=== PATIENT | male | born 1955 | race Caucasian/White ===

== ENCOUNTER 2016-04-18 13:24 | Emergency (ER) | payer MEDICAID ==
[2016-04-18 13:31] VITALS: TEMP 97.2
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
[2016-04-18] MEDS ORDERED: HYDROCOD/APAP 5/325 PREPACK#6 BTL TAKEHOME ONE (14:44)
[2016-04-18 15:05] VITALS: BP 146/94; PULSE 72; RESP 18; O2SAT 96
--- NOTE | 2016-04-18 16:09 | DX ---
Right rib series, 6 views - April 18, 2016 History: Fall with right-sided rib pain. Comparison: Portable chest of December 02, 2015, PA and lateral chest from May 06, 2014. Findings: There are acute nondisplaced fractures of the anterior right 5th and 6th ribs. Contour irr egularity of the lateral right 7th rib could be related to acute or old fracture. There is no pneumot horax. Mild cardiomegaly is present. There is scattered atelectasis. Moderate degenerative change is present in the right glenohumeral joint. Impression: Acute nondisplaced anterior right 5th and 6th rib fractures with an age indeterminate no ndisplaced lateral right 7th rib fracture.
== END 2016-04-18 15:05 | disposition home or self-care (01) ==
DX: S20.219A Contusion of unspecified front wall of thorax, initial encounter (principal); Z85.46 Personal history of malignant neoplasm of prostate; W00.0XXA Fall on same level due to ice and snow, initial encounter; Y93.89 Activity, other specified

== ENCOUNTER 2017-01-12 15:20 | Inpatient (IN) | payer MEDICAID ==
[2017-01-12] MEDS ORDERED: NS 1,000 ML IV ONE ×2 (15:52→17:42)
[2017-01-12] MEDS ORDERED: LORazepam 2 MG/ML INJ IVP ONE (15:52)
[2017-01-12] MEDS ORDERED: ONDANSETRON 4 MG/2 ML VIAL IVP ONE ×2 (15:52→18:47)
[2017-01-12] MEDS ORDERED: HYDROmorphONE/DILAUDID 1 MG/ML INJ IVP ONE (15:54)
--- NOTE | 2017-01-12 15:55 | CPEKG ---
Heart Rate: 71 RR Interval: 845 P-R Interval: 180 QRSD Interval: 112 QT Interval: 400 QTC Interval: 435 P [place]: 16 QRS [place]: 36 T Wave [place]: 37 EKG Severity - ABNORMAL ECG - EKG Impression: SINUS RHYTHM EKG Impression: INCOMPLETE RIGHT BUNDLE BRANCH BLOCK Electronically Signed By: Jean Marie Cole 12-Jan-2017 16:15:04
[2017-01-12 15:58] LABS: HEMATOCRIT 44.8 % (40.0-51.0); HEMOGLOBIN 16.3 g/dL (13.7-17.5); MEAN CELL HEMOGLOBIN 33.7 pg (27.9-34.1); MEAN CELL HEMOGLOBIN CONCENTR. 36.4 g/dL (32.4-36.7); MEAN CELL VOLUME 92.6 fL (81.5-99.8); MEAN PLATELET VOLUME 10.1 fL (8.7-11.7); PLATELET COUNT 239 10^3/uL (150-400); RED BLOOD CELL COUNT 4.84 10^6/uL (4.40-6.38); RED CELL DISTRIBUTION WIDTH 13.1 % (11.5-15.2)
[2017-01-12 15:59] LABS: % IMMATURE GRANULYOCYTES 0.3 % (0.0-1.1); ABSOLUTE IMMATURE GRANULOCYTES 0.02 10^3/uL (0.00-0.10); ADD DIFF? NO; ADD MORPH? NO; ADD SCAN? NO; ATYPICAL LYMPHOCYTE FLAG 10 (0-99); FRAGMENT RBC FLAG 0 (0-99); LEFT SHIFT FLG 0 (0-99); LIPEMIA HEMOLYSIS FLAG 90 (0-99); PLATELET CLUMPS FLAG 0 (0-99)
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
[2017-01-12 16:10] LABS: ALANINE AMINOTRANSFERASE 30 IU/L (21-72); ALBUMIN 4.2 g/dL (3.5-5.0); ALKALINE PHOSPHATASE 74 IU/L (38-126); ANION GAP 11 mEq/L (8-16); ASPARTATE AMINOTRANSFERASE 19 IU/L (17-59); BILIRUBIN,TOTAL 1.3 mg/dL (0.1-1.4); BILIRUBIN-CONJUGATED 0.4 mg/dL (0.0-0.5); BILIRUBIN-UNCONJUGATED 0.9 mg/dL (0.0-1.1); CALCIUM 9.2 mg/dL (8.5-10.4); CARBON DIOXIDE 22 mEq/l (22-31); CHLORIDE 104 mEq/L (97-110); CREATININE 0.9 mg/dL (0.7-1.3); GLOMERULAR FILTRATION RATE > 60; GLUCOSE 93 mg/dL (70-100); POTASSIUM 4.2 mEq/L (3.5-5.2); SODIUM 137 mEq/L (134-144)
[2017-01-12 16:12] LABS: INR 1.09 (0.83-1.16)
[2017-01-12 16:13] LABS: APTT 28.1 SEC (23.0-38.0)
[2017-01-12 16:20] LABS: TROPONIN I < 0.012 ng/mL (0.000-0.034)
[2017-01-12] MEDS ORDERED: IOPAMIDOL (ISOVUE-300) 100 ML BTL ONE (16:42)
[2017-01-12] MEDS ORDERED: ONDANSETRON 4 MG/2 ML VIAL IVP PRN (19:30)
[2017-01-12] MEDS ORDERED: ONDANSETRON DISINTEGRATING 4 MG TAB PO PRN (19:30)
[2017-01-12] MEDS ORDERED: MECLIZINE HCL 12.5 MG TAB PO PRN (22:00)
[2017-01-12] MEDS ORDERED: BISACODYL 10 MG SUPP PR PRN (22:07)
[2017-01-12] MEDS ORDERED: LACTULOSE 20 GM/30 ML UDCUP PO PRN (22:07)
[2017-01-12] MEDS ORDERED: MAGNESIUM HYDROXIDE 30 ML UDCUP PO PRN (22:07)
[2017-01-12] MEDS ORDERED: POLYETHYLENE GLYCOL 3350 17 GM PKT PO PRN (22:07)
[2017-01-12] MEDS: HYDROCODONE/APAP 5/325 TAB PO PRN (22:20)
[2017-01-12 22:44] LABS: COLOR YELLOW; LEUKOCYTE ESTERASE,URINE NEGATIVE (NEGATIVE); NITRITE,URINE NEGATIVE (NEGATIVE)
--- NOTE | 2017-01-12 22:49 | GHP ---
[f rep st] HISTORY AND PHYSICAL DATE OF ADMISSION: 01/12/2017 CHIEF COMPLAINT: Dizziness, abdominal pain. PRIMARY ONCOLOGIST: Kristen Mata MD. HISTORY OF PRESENT ILLNESS: A 61-year-old male with metastatic prostate cancer , history of concussion, chronic tinnitus, who was undergoing a nuclear bone scan and developed sudden onset of dizziness and abdominal pain. It was difficult to obtain history from patient as he is very tangential during the interview. He thinks he is dizzy probably because of decreased p.o. intake for the last 2 weeks. Any kind of food or drink causes bloating, increased belching. He feels very full quickly. He has had some chills, but no fevers or sweats. Some nausea. No emesis or diarrhea. No recent antibiotics. Has dysuria for 2 weeks. He was seen at [facility] on Monday and received Lupron and Zometa. After that, he developed 2 days of diarrhea and abdominal cramping. Prior to that, he was started on prednisone, but this caused stomach cramps, so he stopped. He takes Advil regularly for his chronic back pain. Denies melena or hematochezia. He has a history of a concussion a year ago. He said he had dizziness chronically thereafter and was taking meclizine. That symptom has improved over the last 4 months. Today, he received tracer injection for bone scan and suddenly dizziness started. STAT team called and sent to ER for further evaluation. REVIEW OF SYSTEMS: I completed a 10-point review of systems, negative except as noted in the HPI. PAST MEDICAL HISTORY: 1. Metastatic prostate cancer. 2. Degenerative disk disease L4-L5. 3. Hearing loss. 4. Tinnitus. 5. Chronic dizziness after concussion a year ago. 6. Hiatal hernia. PAST SURGICAL HISTORY: Left elbow. SOCIAL HISTORY: Lives in [place] alone. Occasional alcohol. No tobacco or illicits. FAMILY HISTORY: Brother of melanoma. Father with melanoma. HOME MEDICATIONS: Tylenol, Flexeril, ranitidine, Vicodin, Advil 2-3 tabs daily. ALLERGIES: No known drug allergies. PHYSICAL EXAM: VITAL SIGNS: Blood pressure 145/88, heart rate 60s, respirations 18, 95% on room air. Temperature 36.4. GENERAL: Sitting up in a chair. No acute distress. HEENT: PERRLA. EOMI. Oropharynx clear. CV: Regular rate and rhythm. No murmurs, gallops, rubs. LUNGS: Clear to auscultation bilaterally. ABDOMEN: Soft, nontender, nondistended. Positive bowel sounds. : No suprapubic tenderness or CVA tenderness. MUSCULOSKELETAL : 5/5 upper lower extremity strength. NEURO: 2 through 12 intact. PSYCH: Alert and oriented x3. Very difficult to keep on point, tangential on question. LABORATORY DATA: Coags within normal. Sodium 137, potassium 4.2, chloride 104 , anion gap 11, creatinine 0.9. LFTs within normal. Troponin less than 0.012. Lipase 59. WBC 7.4, hemoglobin 16, hematocrit 44, platelets 259. EKG personally reviewed by me. Incomplete bundle branch block. This is seen on prior EKG. Head CT personally reviewed. Normal brain. No acute hemorrhage or infarct. Abdominal CT: No acute intraabdominal process. No appendicitis or obstruction. Retroperitoneal/left periaortic lymphadenopathy has decreased. Bilateral external iliac lymphadenopathy has increased. Questionable sclerotic lesion of a left 8th rib. Sigmoid diverticulosis. ASSESSMENT AND PLAN: 1. Dizziness: Differential includes cerebrovascular accident versus dehydration. CT head was negative. Blood pressure is stable here. We will check orthostatics. Hydrate overnight. Troponin, EKG negative for ischemia. P.r.n. meclizine. 2. Abdominal pain: maybe due to tracer medication? No evidence of infection or obstruction on CT. May be due to underlying constipation. Start bowel regimen. 3. Metastatic prostate cancer: Management per Oncology. 4. Chronic back pain: I advised patient to be cautious with Advil as that could cause gastrointestinal bleeding which he had in the past with meloxicam. He can use Vicodin or Tylenol. DIET: Regular. DEEP VENOUS THROMBOSIS PROPHYLAXIS: Lovenox. DISPOSITION: Patient warrants observation admission given acute dizziness, abdominal pain, IV hydration and p.r.n. antiemetics. /[id number]/MODL MTDD
[2017-01-13] MEDS: HYDROCODONE/APAP 5/325 TAB PO PRN (02:22)
[2017-01-13 05:21] LABS: ANION GAP 5 mEq/L (8-16); CALCIUM 8.1 mg/dL (8.5-10.4); CARBON DIOXIDE 24 mEq/l (22-31); CHLORIDE 107 mEq/L (97-110); CREATININE 0.8 mg/dL (0.7-1.3); GLOMERULAR FILTRATION RATE > 60; GLUCOSE 90 mg/dL (70-100); POTASSIUM 4.1 mEq/L (3.5-5.2); SODIUM 136 mEq/L (134-144)
[2017-01-13] MEDS ORDERED: Herbals/Supplements -Info Only PO SCH (09:00)
[2017-01-13] MEDS ORDERED: FAMOTIDINE 20 MG TAB PO PRN (09:00)
[2017-01-13] MEDS: ACETAMINOPHEN 325 MG TAB PO PRN ×2 (09:34→19:43)
[2017-01-13] MEDS: SENNOSIDES/DOCUSATE SODIUM TAB PO SCH ×2 (09:34→21:29)
[2017-01-13] MEDS: ENOXAPARIN 40 MG/0.4 ML SYR SC SCH (09:39)
--- NOTE | 2017-01-13 15:22 | HOSPPROG ---
Hospitalist Progress Note Assessment/Plan: DIAGNOSES: -gradually progressive left lower quadrant abdominal pain over 6-8 weeks now with several episodes of severe spasm in the lower abdomen, with some intermittent constipation and/or loose stools -prostate cancer on Lupron and Zometa; it is possible that the zometa and Lupron have somewhat aggravated his GI symptoms As I reviewed the case in detail with the patient he clearly has had progressive symptoms over 6 weeks. In addition there is a very focal spot with tenderness pain and a trigger point for nausea in the left lower quadrant. I am easily able to trigger some pain and spasm of the got along with nausea by palpating this area though out there is no peritoneal sign and there is no palpable mass. There are no corresponding findings to that area on his CT scan abdomen is I have reviewed the images today. Additionally he tells me that he has been able to eat very well food is fair bit of weight almost all the food he eats his either liquid or soft such as yogurt. This has been going on again for several weeks. Also he mentions that probably a couple weeks before all these digestive symptoms started, he was taking some nonsteroidal anti- inflammatory medicine for back pain. At 1 point during this he had 2 days of hematochezia. He visited his physician who recommended that he stop the in nonsteroidal anti-inflammatory but there was no diagnostic evaluation done at that time. Thus I am concerned about the possibility that he could have a gastric or colonic ulcer, or even possibly a tumor or other inflammatory lesion causing all of his symptoms as described. His dizziness I think is a combination of chronic dizziness from closed head injury, dehydration, and dizziness side effects from his [place] and Lupron, and I am not concerned about that symptom right now. It is not debilitating and I do not think he has had a stroke. There is no vertigo involved or allergic symptoms. PLANS: -I have spoken with Dr. Amber Shoemaker and recommended we consider upper and lower endoscopy and Dr. Shoemaker is scheduling him for EGD and colonoscopy tomorrow. I have put the appropriate -diet orders and colitis border in -to his own symptoms inability to eat and difficulty controlling pain, the patient will require ongoing management here in the hospital with ongoing diagnostic studies, therefore will need to change to inpatient SUBJECTIVE: The patient's abdominal pain continues. As I talked to him that he has is a constant left lower quadrant ache that is very localized and small in dimension , and always palpable him with his fingers. Any time he palpates this area he triggers nausea, triggers what feels like intestinal spasm and quite a bit of pain. He also intermittently has spontaneous episodes of severe pain across the lower abdomen that seemed to emanate from this area in the left lower quadrant. OBJECTIVE Vitals reviewed: Stable without fever Exam: alert oriented skin warm dry color ok resps not labored lungs clear BSs heart regular abd soft nondistended, bowel sounds present, no palpable abnormality; there is a focal area of tenderness in the left lower quadrant that triggers nausea upon my palpation as well as a spasm of crampy colicky type pain across his lower abdomen limbs warm, no edema iv site ok Objective: Vital Signs Temp Pulse Resp BP Pulse Ox 36.8 C 62 14 127/73 H 95 01/13/17 11:43 01/13/17 11:43 01/13/17 11:43 01/13/17 11:43 01/13/17 11:43 Laboratory Results 01/13/17 04:24 01/12/17 01/13/17 01/14/17 06:59 06:59 06:59 Intake Total 3120 Output Total 1375 650 Balance 1745 -650 PT 14.0 SEC (12.0-15.0) 01/12/17 15:42 INR 1.09 (0.83-1.16) 01/12/17 15:42 - Time Spent With Patient Time Spent with Patient: greater than 35 minutes Time Spent with Patient: Greater than 35 minutes spent on this patients care, greater than 50% of time spent counseling, educating, and coordinating care regarding the above mentioned plan. ICD10 Worksheet Patient Problems: Problems Problem Status Onset Near syncope Acute Prostate cancer Acute 08/21/13 Ataxia Acute Febrile neutropenia Acute 03/30/14 Sinusitis Acute
[2017-01-13] MEDS ORDERED: PEG 3350/NA SULF,BICARB,CL/KCL (GAVILYTE-G) 4000 ML BTL PO ONE ×2 (15:29→21:15)
--- NOTE | 2017-01-13 17:22 | ASMTCMCOM ---
CM Note CM Note Notes: Pt with hx of metastatic prostate ca admitted for dizziness. Testing in progress. Pt's needs are TBD. Date Signed: 01/13/2017 05:21 PM Electronically Signed By:Yazmin Chapin LCSW
[2017-01-13] MEDS: CYCLOBENZAPRINE 10 MG TAB PO PRN (19:43)
[2017-01-14] MEDS: HYDROCODONE/APAP 5/325 TAB PO PRN ×3 (01:14→22:42)
--- NOTE | 2017-01-14 05:09 | PDMN ---
Medical Necessity Medical necessity: Pt meets INPT criteria per MD as of 01/13/17. LOS >2 MN for ongoing eval/mgmt of progressive abd pain requiring further diagnostic studies; hx prostate cancer on rx per MD progress note.
[2017-01-14] MEDS: ENOXAPARIN 40 MG/0.4 ML SYR SC SCH (07:59)
[2017-01-14] MEDS: SENNOSIDES/DOCUSATE SODIUM TAB PO SCH ×2 (07:59→19:48)
[2017-01-14] MEDS: ACETAMINOPHEN 325 MG TAB PO PRN ×2 (09:55→17:59)
[2017-01-14] MEDS ORDERED: PROPOFOL/EMULSION 500 MG/50 ML BOTTLE IV ONE (11:22)
[2017-01-14] MEDS ORDERED: fentaNYL 100 MCG/2 ML INJ IVP PRN (12:15)
[2017-01-14] MEDS ORDERED: NALOXONE HCL 0.4 MG/ML INJ IVP PRN (12:15)
[2017-01-14] MEDS ORDERED: ONDANSETRON 4 MG/2 ML VIAL IVP PRN (12:15)
[2017-01-14] MEDS ORDERED: LR 500 ML IV PRN (12:15)
--- NOTE | 2017-01-14 12:15 | POSTANESTH ---
Post Anesthetic Evaluation Cardiovascular Status: Normal, Stable Respiratory Status: Normal, Stable Level of Consciousness/Mental Status: Can Participate in Eval Pain Control: Adequate, Prn Tx Ordered Nausea/Vomiting Control: Adequate, Prn Tx Ordered Complications Possibly Related to Anesthesia: None Noted
--- NOTE | 2017-01-14 12:15 | PDANEPAE ---
ANE Past Medical History - Cardiovascular History Hx Hypertension: No Hx Arrhythmias: No Hx Chest Pain: No Hx Coronary Artery / Peripheral Vascular Disease: No Hx CHF / Valvular Disease: No Hx Palpitations: No - Pulmonary History Hx COPD: No Hx Asthma/Reactive Airway Disease: No Hx Recent Upper Respiratory Infection: No Hx Oxygen in Use at Home: No Hx Sleep Apnea: No Sleep Apnea Screening Result - Last Documented: Negative - Endocrine History Hx Diabetes: No Hypothyroid: No Hyperthyroid: No Obesity: mild - Other Health History Other Health History: prostate cancer - Chronic Pain History Chronic Pain: Yes ANE Review of Systems Review of Systems: ANE Patient History - Allergies Allergies/Adverse Reactions: No Known Allergies Allergy (Verified 04/18/16 13:32) - Home Medications Home Medications: Cyclobenzaprine [Flexeril 10 MG (*)] 10 mg PO HS PRN 01/12/17 [Last Taken Unknown] Herbals/Supplements -Info Only 1 ea PO DAILY 01/12/17 [Last Taken Unknown] Hydrocodone/Acetaminophen [[place] 5/325 (*)] 1 - 2 tab PO Q6H PRN 01/12/17 [Last Taken Unknown] Meclizine HCl [Meclizine HCl 12.5 mg (*)] 25 mg PO DAILY PRN 01/12/17 [Last Taken Unknown] Ondansetron Odt [Zofran Odt 4 mg (*)] 8 mg PO Q8H PRN 01/12/17 [Last Taken 01/12] Ranitidine HCl [Zantac] 150 mg PO BID PRN 01/12/17 [Last Taken Unknown] - NPO status NPO Since - Liquids (Date): 01/14/17 NPO Since - Liquids (Time): 00:00 NPO Since - Solids (Date): 01/14/17 NPO Since - Solids (Time): 00:00 - Smoking Hx Smoking Status: Never smoked - Alcohol Use Alcohol Use: Sober ANE Labs/Vital Signs - Labs Result Diagrams: 01/12/17 15:42 01/13/17 04:24 - Vital Signs Blood Pressure: 126/78 Heart Rate: 65 Respiratory Rate: 18 O2 Sat (%): 94 Height: 185.4 cm Weight: 101.8 kg ANE Physical Exam - Airway Neck exam: FROM Mallampati Score: Class 2 Mouth exam: poor dentition - Pulmonary Pulmonary: no respiratory distress - Cardiovascular Cardiovascular: regular rate and rhythym - ASA Status ASA Status: III ANE Anesthesia Plan Anesthesia Plan: GA with mask Urgent/Emergent Case: Anes mona completed preop but documented later for safe timely pt care
--- NOTE | 2017-01-14 12:27 | SUROPNOTE ---
[facility] Operative Report - Surgery BRIEF EGD/COLON NOTE (full report to follow) INDICATION: abdominal pain, bloating, diarrhea, blood in stool MEDICATIONS: per anesthesia COMPLICATIONS: none acutely FINDINGS: EGD 1. mild esophagitis at GE junction - bx'd 2. mild gastritis - bx'd 3. normal duodenum - bx'd COLON 1. 5mm cecal polyp - removed with cold bx 2. few small diverticuli in sigmoid colon 3. otherwise normal exam - bx of normal colon done to r/o colitis IMPRESSION/RECS: 1. ABD PAIN/EARLY SATIETY/DIARRHEA - no obvious source of symptoms with EGD/COLO - CT and labs also unremarkable - recommend patient dc NSAIDs, if possible. - await bx results from today - check h.pylori status with stool ag or serum ab - PPI QD - GB appears normal on CT, and LFTs normal, but could consider US/HIDA to r/o biliary tract disease? - continue supportive care - will sign off, call with any questions
--- NOTE | 2017-01-14 12:50 | GIREPORT ---
[facility] - Endoscopy Department Patient Name: SEYMOUR WILEY Procedure Date: 01/14/2017 11:39 AM Patient Type: Inpatient Attending MD/ ER Physician: Amber Shoemaker MD Procedure: Colonoscopy Indications: Generalized abdominal pain, Chronic diarrhea, Clinically significant diarrhea of unexplained origin, Hematochezia Providers: Amber Shoemaker MD Medicines: Sedation Required Anesthesia Staff Assistance Complications: No immediate complications. Description of Procedure: After obtaining informed consent, the scope was passed under direct vision. Throughout the proce dure, the patient's blood pressure, pulse, and oxygen saturations were monitored continuously. The Colonoscope with irrigation channel was introduced through the anus and advanced to the cecum, identified by appendiceal orifice and ileocecal valve. The colonoscopy was performed without difficulty. The patient tolerated the procedure well. The quality of the bowel preparation was g ood. The ileocecal valve, appendiceal orifice, and rectum were photographed. Findings: The colon (entire examined portion) appeared normal. Biopsies for histology were taken with a co ld forceps for evaluation of microscopic colitis. A 5 mm polyp was found in the cecum. The polyp was sessile. The polyp was removed with a cold bi opsy forceps. Resection and retrieval were complete. A few small-mouthed diverticula were found in the sigmoid colon. Estimated Blood Loss: Estimated blood loss: none. Estimated blood loss: none. Post Op Diagnosis: - The entire examined colon is normal. Biopsied. - One 5 mm polyp in the cecum, removed with a cold biopsy forceps. Rese cted and retrieved. Recommendation: - Return patient to hospital [facility] for ongoing care. - Await pathology results. Attending Participation: I personally performed the entire procedure. ,Electronically Sigened by Amber Shoemaker MD> Amber Shoemaker MD 01/14/2017 12:50:11 PM Number of Addenda: 0 Note Initiated On: 01/14/2017 11:39 AM Total Procedure Duration Time 0 hours 18 minutes 32 seconds [email or web address]
--- NOTE | 2017-01-14 12:50 | GIREPORT ---
[facility] Surgical Services - Endoscopy Department Patient Name: SEYMOUR WILEY Procedure Date: 01/14/2017 11:17 AM Patient Type: Inpatient Attending MD/ ER Physician: Abmer Shoemaker MD Procedure: Upper GI endoscopy Indications: Epigastric abdominal pain, Heartburn, Hematochezia, Early satiety, Weig ht loss Providers: Amber Shoemaker MD Medicines: Sedation Required Anesthesia Staff Assistance Complications: No immediate complications. Description of Procedure: After obtaining informed consent, the endoscope was passed under direct vision. Throughout the procedure, the patient's blood pressure, pulse, and oxygen saturations were monitored continuous ly. The Endoscope was introduced through the mouth, and advanced to the fourth part of duodenum. The upper GI endoscopy was accomplished without difficulty. The patient tolerated the procedure well . Findings: LA Grade A (one or more mucosal breaks less than 5 mm, not extending between tops of 2 mucosal f olds) esophagitis with no bleeding was found at the gastroesophageal junction. Biopsies were taken wit h a cold forceps for histology. Diffuse mild inflammation characterized by congestion (edema) and erythema was found in the enti re examined stomach. Biopsies were taken with a cold forceps for histology. The examined duodenum was normal. Biopsies for histology were taken with a cold forceps for evaluation of celiac disease. Estimated Blood Loss: Estimated blood loss: none. Post Op Diagnosis: - LA Grade A reflux esophagitis. Biopsied. - Gastritis. Biopsied. - Normal examined duodenum. Biopsied. Recommendation: - Return patient to hospital [facility] for ongoing care. - Await pathology results. Attending Participation: I personally performed the entire procedure. ,Electronically Sigened by Amber Shoemaker MD> Amber Shoemaker MD 01/14/2017 12:49:20 PM Number of Addenda: 0 Note Initiated On: 01/14/2017 11:17 AM [email or web address]
--- NOTE | 2017-01-14 13:00 | GCON ---
[f rep st] CONSULTATION REFERRING PHYSICIAN: Dr. Martinez REASON FOR CONSULTATION: Abdominal pain, change in bowel habits, and blood in stool. HISTORY OF PRESENT ILLNESS: Briefly, the patient is a 61-year-old male with a history of metastatic prostate cancer, as well as concussion, who had the onset of dizziness and abdominal pain during a nuclear bone scan. He was admitted to the hospital to evaluate his symptoms. He describes that he has had approximately 2-3 weeks of decreasing p.o. intake. Whenever he eats or drinks any sort of food, he will have increasing abdominal bloating, abdominal belching , pain, early satiety, and bilateral lower quadrant abdominal pain. He denies emesis. He has also had some diarrhea with abdominal cramping. Of note, he uses Advil on a regular basis related to chronic back pain. He denies melena, but admits to remote bright red blood per rectum. He had a history of a head injury and concussion. This has led to chronic dizziness. He had been using meclizine. He reports that over the last several months his symptoms have improved. Of note, he had sudden onset of the dizziness during his tracer injection. REVIEW OF SYSTEMS: A complete 10-system review was undertaken with the patient and is negative, except for those details described in the History of Present Illness. PAST MEDICAL HISTORY: Includes prostate cancer, degenerative disk disease, hearing loss, tinnitus, dizziness after concussion, hiatal hernia. PAST SURGICAL HISTORY: Left elbow surgery. SOCIAL HISTORY: He lives in [place]. He does not use drugs or smoke cigarettes. He drinks alcohol rarely. FAMILY HISTORY: Significant for two first-degree relatives with melanoma. MEDICATIONS: Outpatient medicines are Tylenol, Flexeril, ranitidine, Vicodin, and Advil 2-3 tabs per day. ALLERGIES: No known allergies. PHYSICAL EXAM: GENERAL: This is a well-developed male, in no apparent distress. HEENT: His pupils are equal, round, reactive to light and accommodation. His sclerae are nonicteric. His oropharynx is clear. NECK: Supple, without lymphadenopathy. HEART: Regular, without murmur. ABDOMEN: Soft, nontender, with normoactive bowel sounds. LUNGS: clear with good effort. EXTREMITIES: Free of cyanosis, clubbing, and edema. His joints show no arthritis. NEURO: none focal, no deficits. PSYCH: Exam reveals normal mood and affect. SKIN: Warm and dry, without rash. LABORATORY DATA: Laboratory testing shows a white count of 7.49, hemoglobin of 16.3, hematocrit of 44.8, platelet count of 239. INR of 1.09, sodium of 136, potassium of 4.1, chloride of 107, bicarb of 24, BUN of 4, creatinine of 0.8. CT scan of the abdomen done on 01/12/2017 showed no acute intraabdominal process. The patient did have sigmoid diverticulosis without diverticulitis. IMPRESSION/RECOMMENDATIONS: The patient has had eating-related abdominal symptoms associated with nausea. This has led to decreased p.o. intake. There has been coincident change in bowel habits with increasing cramping and diarrhea. Abdominal exam, laboratory testing, and x-ray tests are so far unrevealing as a source of his symptoms. At this time, I recommend additional workup given his recurrence of symptoms and gradually worsening of symptoms. Upper endoscopy to rule out peptic disease , as well as lower endoscopy to rule out colitis and enteritis are indicated at this time. Meanwhile, the patient should continue with supportive care measures. It is possible that his symptoms could be related to his underlying prostate cancer therapies. If his upper and lower endoscopy workup are negative , we may consider no additional workup and a concentration on supportive care with antiemetics and pain relievers. /[id number]/MODL MTDD
--- NOTE | 2017-01-14 16:35 | HOSPPROG ---
Hospitalist Progress Note Assessment/Plan: The patient is a 61-year-old male with PMH prostate cancer, stage IV who was admitted for abdominal pain/back pain/lightheadedness and dizziness when he was trying to get a bone scan as an outpatient test. ASSESSMENT/PLAN: Near syncope with lightheadedness and dizziness, resolved Stage IV prostate cancer with iliac lymphadenopathy Degenerative joint disease of L4-L5 Chronic back pain Hearing loss/tinnitus Hiatal hernia Colon polyp Esophagitis Gastritis Incomplete right bundle branch block -discussed case with patient. He believes his lightheadedness was more from dehydration and anxiety associated with getting the bone scan. The medications for prostate cancer may have contributed as well. Symptoms have resolved. -reviewed EGD and colonoscopy reports from today. Agree with plan to have patient stop taking NSAIDs. Start PPI. -Check AM labs. -monitor overnight. If patient is stable and doing well tomorrow will consider to discharge in the morning. -This patient is new to me. Reviewed patient's chart/records for this visit. VTE prophylaxis: Lovenox Code Status: Full Status: Inpatient for greater than 2 midnight stay. Disposition: [facility] with discharge anticipated tomorrow. ____ SUBJECTIVE: Today the patient feels well. He does not have any lightheadedness or dizziness. He admits that he gets vertigo chronically after he had a concussion a year ago. He believes that he was stressed in dehydrated when he was rushing to get to the hospital for his bone scan appointment, resulting in his symptoms of lightheadedness. OBJECTIVE: Physical Exam: General: The patient is an overweight middle-aged male who is alert and in no acute distress. HEENT: normocephalic, extraocular movements intact, conjunctivae clear. Mucous membranes moist. Neck: trachea midline, no visible masses. CV: +S1/S2, RRR, no MRG. Resp: unlabored, CTAB no RRW. Abd: soft and nondistended. Bowel sounds present. Non tender throughout. Musculoskeletal: Normal muscle tone/bulk. Neuro: cranial nerves II XII grossly intact. Intact gross motor and sensory function. Psych: Appropriate mood and appropriate affect. Skin: No pallor. No petechiae. Heme/lymph: No peripheral edema at bilateral legs. Labs/Imaging/Other Tests: Personally reviewed/interpreted. Objective: Vital Signs Temp Pulse Resp BP Pulse Ox 36.6 C 68 18 124/81 H 93 01/14/17 15:18 01/14/17 15:18 01/14/17 15:18 01/14/17 15:18 01/14/17 15:18 01/13/17 01/14/17 01/15/17 05:59 05:59 05:59 Intake Total 650 500 Output Total 200 Balance 650 300 PT 14.0 SEC (12.0-15.0) 01/12/17 15:42 INR 1.09 (0.83-1.16) 01/12/17 15:42 ICD10 Worksheet Patient Problems: Problems Problem Status Onset Near syncope Acute Prostate cancer Acute 08/21/13 Ataxia Acute Febrile neutropenia Acute 03/30/14 Sinusitis Acute
--- NOTE | 2017-01-14 17:23 | ASMTCMCOM ---
CM Note CM Note Notes: Patient will most likely discharge home Independent when medically ready. Case management will follow. Date Signed: 01/14/2017 05:22 PM Electronically Signed By:VERENA Rod
[2017-01-14] MEDS: PANTOPRAZOLE SODIUM 40 MG TAB PO SCH (18:00)
[2017-01-14] MEDS: CYCLOBENZAPRINE 10 MG TAB PO PRN (18:00)
[2017-01-14 19:50] VITALS: RESP 16
[2017-01-15] MEDS: ACETAMINOPHEN 325 MG TAB PO PRN (04:19)
[2017-01-15 04:22] LABS: % IMMATURE GRANULYOCYTES 0.3 % (0.0-1.1); ABSOLUTE IMMATURE GRANULOCYTES 0.02 10^3/uL (0.00-0.10); ADD DIFF? NO; ADD MORPH? NO; ADD SCAN? NO; ATYPICAL LYMPHOCYTE FLAG 0 (0-99); FRAGMENT RBC FLAG 0 (0-99); HEMATOCRIT 43.5 % (40.0-51.0); HEMOGLOBIN 15.5 g/dL (13.7-17.5); LEFT SHIFT FLG 0 (0-99); LIPEMIA HEMOLYSIS FLAG 90 (0-99); MEAN CELL HEMOGLOBIN 33.3 pg (27.9-34.1); MEAN CELL HEMOGLOBIN CONCENTR. 35.6 g/dL (32.4-36.7); MEAN CELL VOLUME 93.5 fL (81.5-99.8); MEAN PLATELET VOLUME 10.1 fL (8.7-11.7); PLATELET CLUMPS FLAG 10 (0-99); PLATELET COUNT 195 10^3/uL (150-400); RED BLOOD CELL COUNT 4.65 10^6/uL (4.40-6.38); RED CELL DISTRIBUTION WIDTH 13.2 % (11.5-15.2)
[2017-01-15 04:24] VITALS: PULSE 61
[2017-01-15 04:38] LABS: ANION GAP 8 mEq/L (8-16); CALCIUM 8.6 mg/dL (8.5-10.4); CARBON DIOXIDE 23 mEq/l (22-31); CHLORIDE 107 mEq/L (97-110); CREATININE 0.7 mg/dL (0.7-1.3); GLOMERULAR FILTRATION RATE > 60; GLUCOSE 78 mg/dL (70-100); POTASSIUM 4.1 mEq/L (3.5-5.2); SODIUM 138 mEq/L (134-144)
[2017-01-15] MEDS: PANTOPRAZOLE SODIUM 40 MG TAB PO SCH (08:48)
[2017-01-15] MEDS: HYDROCODONE/APAP 5/325 TAB PO PRN (08:48)
[2017-01-15 08:50] VITALS: BP 130/77; TEMP 97.7; O2SAT 96
[2017-01-15] MEDS: ENOXAPARIN 40 MG/0.4 ML SYR SC SCH (09:17)
[2017-01-15] MEDS: SENNOSIDES/DOCUSATE SODIUM TAB PO SCH (09:19)
--- NOTE | 2017-01-15 11:46 | PDDCSUM ---
Discharge Summary Discharge Summary: Date of Admission: January 13, 2017 Date of Discharge: January 15, 2017 Discharge Diagnoses: Stage IV prostate cancer with iliac lymphadenopathy Degenerative joint disease of L4-L5 Chronic back pain Hearing loss/tinnitus Hiatal hernia Colon polyp Esophagitis Gastritis Incomplete right bundle branch block Admission Diagnoses: Dizziness Abdominal pain Left hip pain Stage IV prostate cancer History of concussion Consultants: BRAVO-Dr. Shoemaker [facility] Hospital Course: Patient is a 59-year-old male with metastatic prostate cancer, history of concussion, chronic tinnitus who was undergoing a nuclear bone scan ordered by his oncologist for hip pain which started about 1 month ago. He developed a sudden onset of dizziness and abdominal pain. He was admitted to the hospital for near syncope. He underwent abdominal workup which included EGD. EGD was fairly unremarkable in showed gastritis and esophagitis. Patient admitted he had been taking NSAIDs for his hip pain. He was instructed to stop taking NSAIDs and start taking Protonix. Ultimately patient admitted he had not been eating or drinking much in the last couple weeks. The day of his bone scan, he was rushing to the hospital and had not been well hydrated. Symptoms are thought to have been from dehydration. Physical Exam: General: The patient is an obese, middle-aged male who is alert and in no acute distress. HEENT: normocephalic, extraocular movements intact, conjunctivae clear, no lesions on face. Nares and oral mucosa pink and moist. Neck: trachea midline, no visible masses, no external lesions. Resp: unlabored breathing. Abd: soft and nondistended. Musculoskeletal: Normal muscle tone and bulk. Neuro: cranial nerves II XII grossly intact. Intact gross motor and sensory function. Psych: appropriate mood/affect. Skin: no pallor. Condition: Stable. Discharged to: Home. Pertinent tests/labs/imaging: EGD-gastritis and esophagitis. Biopsy pending path report. H pylori IgG-negative. Lipase 59. Liver function tests-normal. BMP-normal. CC-normal. Medications: Please see med rec form. Patient was given a prescription for Protonix. He was given [place] to help with pain. Special instructions: Patient was recommended to get a bone scan this week to further evaluate left hip pain. Continue to use 10s unit, apply ice or heat as needed to help with pain. Follow up: Follow up with oncologist Dr. Mata as planned within 1 week. Greater than 30 minutes of total time was spent on counseling and coordination of care for this patient's discharge.
== END 2017-01-15 12:23 | disposition home or self-care (01) | DRG 723 ==
LOC: F1N 20:08 → OBSVTOIN 01-13 18:38
PROVIDERS: ADMIT Internal Medicine; ATTEND Internal Medicine
PROC: 3E0337Z Introduction of Electrolytic and Water Balance Substance into Peripheral Vein, Percutaneous Approach (ICD-10-PCS; 2017-01-13)
PROC: 0DB48ZX Excision of Esophagogastric Junction, Via Natural or Artificial Opening Endoscopic, Diagnostic (ICD-10-PCS; principal; 2017-01-14 12:00)
PROC: 0DB98ZX Excision of Duodenum, Via Natural or Artificial Opening Endoscopic, Diagnostic (ICD-10-PCS; principal; 2017-01-14 12:00)
PROC: 0DB68ZX Excision of Stomach, Via Natural or Artificial Opening Endoscopic, Diagnostic (ICD-10-PCS; principal; 2017-01-14 12:00)
PROC: 0DBH8ZX Excision of Cecum, Via Natural or Artificial Opening Endoscopic, Diagnostic (ICD-10-PCS; principal; 2017-01-14 12:00)
PROC: 0DBE8ZX Excision of Large Intestine, Via Natural or Artificial Opening Endoscopic, Diagnostic (ICD-10-PCS; principal; 2017-01-14 12:00)
DX: C61 Malignant neoplasm of prostate (principal); C77.5 Secondary and unspecified malignant neoplasm of intrapelvic lymph nodes; R42 Dizziness and giddiness; E86.9 Volume depletion, unspecified; R10.32 Left lower quadrant pain; D12.0 Benign neoplasm of cecum; M25.552 Pain in left hip; G89.3 Neoplasm related pain (acute) (chronic); K20.9 Esophagitis, unspecified; K29.70 Gastritis, unspecified, without bleeding; K44.9 Diaphragmatic hernia without obstruction or gangrene; K22.70 Barrett's esophagus without dysplasia; R19.7 Diarrhea, unspecified; H93.19 Tinnitus, unspecified ear; M51.36 Other intervertebral disc degeneration, lumbar region; I45.19 Other right bundle-branch block; H91.90 Unspecified hearing loss, unspecified ear; S06.0X9S Concussion with loss of consciousness of unspecified duration, sequela
CPT/HCPCS: 96374; A9503; G0378; J1170; J1650; J2060; J2405; J2704; Q9967

== ENCOUNTER 2017-01-18 11:26 | Emergency (ER) | payer MEDICAID ==
[2017-01-18 11:41] VITALS: TEMP 98.1
[2017-01-18] MEDS ORDERED: DIAZEPAM 5 MG TAB PO ONE (13:19)
[2017-01-18] MEDS ORDERED: KETOROLAC 15 MG/1 ML SDV IVP ONE (13:19)
--- NOTE | 2017-01-18 13:24 | EDPHY ---
H & P Stated Complaint: Exacerbation of chronic low back/L hip pain Time Seen by Provider: 01/18/17 13:07 HPI/ROS: CHIEF COMPLAINT: Low back pain HISTORY OF PRESENT ILLNESS: Patient is a 61-year-old man with stage IV prostate cancer with lymphatic lymphadenopathy, degenerative joint disease L4-5 with chronic back pain. He states that his back pain has been worse over the last week. He was admitted last week for abdominal pain and dizziness. His pain was controlled in the hospital and he was able to go home on H[place], Flexeril and Tylenol. He had been taking high doses of NSAIDs which were discontinued. The patient states that twice in the hospital bed he rolled over onto his left side and had severe pain which was controlled narcotics. He was to follow up as an outpatient. He states however that he has not slept for the last 2 nights because the pain is too severe. It radiates to his left gluteus. He denies weakness or numbness or bowel or bladder abnormalities. He does however have significant pain to the point where his left leg starts to collapse when he tries to ambulate. He denies any new trauma or falls. REVIEW OF SYSTEMS: Constitutional: denies: chills, fever, recent illness, recent injury EENTM: denies: blurred vision, double vision, nose congestion Respiratory: denies: cough, shortness of breath Cardiac: denies: chest pain, irregular heart rate, lightheadedness, palpitations Gastrointestinal/Abdominal: denies: abdominal pain, diarrhea, nausea, vomiting, blood streaked stools Genitourinary: denies: dysuria, frequency, hematuria, pain Musculoskeletal: See HPI Skin: denies: lesions, rash, jaundice, bruising Neurological: denies: headache, numbness, paresthesia, tingling, dizziness, weakness Hematologic/Lymphatic: denies: blood clots, easy bleeding, easy bruising Immunologic/allergic: denies: HIV/AIDS, transplant EXAM: GENERAL: Well-appearing, well-nourished and in no acute distress. HEAD: Atraumatic, normocephalic. EYES: Pupils equal round and reactive to light, extraocular movements intact, sclera anicteric, conjunctiva are normal. ENT: TMs normal, nares patent, oropharynx clear without exudates. Moist mucous membranes. NECK: Normal range of motion, supple without lymphadenopathy or JVD. LUNGS: Breath sounds clear to auscultation bilaterally and equal. No wheezes rales or rhonchi. HEART: Regular rate and rhythm without murmurs, rubs or gallops. ABDOMEN: Soft, nontender, normoactive bowel sounds. No guarding, no rebound. No masses appreciated. BACK: Low back pain, No CVA tenderness, no spinal tenderness, step-offs or deformities EXTREMITIES: Pain with lifting left leg bed. Pain in the gluteus region. No weakness or numbness. Normal range of motion, no pitting or edema. No clubbing or cyanosis. NEUROLOGICAL: Cranial nerves II through XII grossly intact. Normal speech. 5/ 5 strength, normal movement in all extremities, normal sensation PSYCH: Normal mood, normal affect. SKIN: Warm, dry, normal turgor, no visible rashes or lesions. Source: Patient Exam Limitations: No limitations - Personal History Current Tetanus Diphtheria and Acellular Pertussis (TDAP): Yes Tetanus Vaccine Date: 2015 - Medical/Surgical History Hx Asthma: No Hx Chronic Respiratory Disease: No Hx Diabetes: No Hx Cardiac Disease: No Hx Renal Disease: No Hx Cirrhosis: No Hx Alcoholism: No Hx HIV/AIDS: No Hx Splenectomy or Spleen Trauma: No Other PMH: Prostate CA w/mets, ORIF left elbow-2006. anxiety, CONCUSSION 11/16. GERD - Family History Significant Family History: No pertinent family hx - Social History Smoking Status: Never smoked Constitutional: Initial Vital Signs Temperature (C) 36.7 C 01/18/17 11:32 Heart Rate 88 01/18/17 11:32 Respiratory Rate 18 01/18/17 11:32 Blood Pressure 139/87 H 01/18/17 11:32 O2 Sat (%) 97 01/18/17 11:32 O2 Delivery Mode Room Air Allergies/Adverse Reactions: NSAIDS (Non-Steroidal Anti-Inflamma Allergy (Mild, Verified 01/18/17 13:37) GI irritation Home Medications: Medication Instructions Recorded Herbals/Supplements -Info Only 1 ea PO DAILY 01/12/17 Meclizine HCl [Meclizine HCl 12.5 25 mg PO DAILY PRN 01/12/17 mg (*)] Ondansetron Odt [Zofran Odt 4 mg 8 mg PO Q8H PRN 01/12/17 (*)] Acetaminophen [Tylenol 325mg (*)] 650 mg PO Q4HRS PRN tab 01/15/17 Cyclobenzaprine [Flexeril 10 MG 10 mg PO TID PRN 10 Days #30 tab 01/15/17 (*)] Docusate Sodium [Colace 100 MG (*)] 100 mg PO BID #100 cap 01/15/17 Hydrocodone/Acetaminophen [[place] 1 - 2 tab PO Q6H PRN #60 tablet 01/15/17 5/325 (*)] Pantoprazole Sodium [Protonix 40mg 40 mg PO DAILY #30 tab 01/15/17 (*)] Diazepam [Valium 5 MG (*)] 5 mg PO TID PRN #15 tab 01/18/17 Ketorolac Tromethamine [Toradol] 10 mg PO Q6H #16 tab 01/18/17 Medical Decision Making - Diagnostics Imaging: Discussed imaging studies w/ medical office representative Radiologist ED Course/Re-evaluation: 6:10 p.m. we discussed the MRI results. The patient is relieved. He states that he feels completely better after the muscle relaxants and Toradol that I gave him. He states that this works much better than oxycodone adding that he is going to throw the oxycodone away. He is eager to go home. I will give him prescriptions and have him follow up with his regular doctor. He is happy with this plan. Differential Diagnosis: Partial list of the Differential diagnosis considered include but were not limited to; muscle strain, metastasis, fracture, and although unlikely based on the history and physical exam, I also considered infection, cauda equina. I discussed these differential diagnoses and the plan with the patient as well as the usual and expected course. The patient understands that the diagnosis is provisional and that in medicine we are not always correct and that further workup is often warranted. Usual and customary warnings were given. All of the patient's questions were answered. The patient was instructed to return to the emergency department should the symptoms at all worsen or return, otherwise to followup with the physician as we discussed. - Data Points Medications Given: Discontinued Medications Diazepam (Valium) 5 mg PO EDNOW ONE Stop: 01/18/17 13:20 Last Admin: 01/18/17 14:03 Dose: 5 mg Ketorolac Tromethamine (Toradol) 15 mg IVP EDNOW ONE Stop: 01/18/17 13:20 Last Admin: 01/18/17 14:08 Dose: 15 mg Departure - Departure Disposition: Home, Routine, Self-Care Clinical Impression: Back pain Qualifiers: Back pain location: low back pain Chronicity: chronic Back pain laterality: midline Sciatica presence: with sciatica Sciatica laterality: sciatica of left side Qualified Code(s): M54.42 - Lumbago with sciatica, left side; G89.29 - Other chronic pain; G89.29 - Other chronic pain Condition: Fair Instructions: Back Pain (ED) Referrals: Aaron Bingham MD [Primary Care Provider] - As per Instructions Prescriptions: Diazepam [Valium 5 MG (*)] 5 mg PO TID PRN #15 tab PRN Reason: Spasms Ketorolac Tromethamine [Toradol] 10 mg PO Q6H #16 tab
[2017-01-18] MEDS ORDERED: GADOBUTROL 10 ML VIAL IVP ONE (16:52)
[2017-01-18 18:53] VITALS: BP 122/67; PULSE 77; RESP 16; O2SAT 95
== END 2017-01-18 18:50 | disposition home or self-care (01) ==
DX: M54.42 Lumbago with sciatica, left side (principal); G89.29 Other chronic pain; Z85.46 Personal history of malignant neoplasm of prostate
CPT/HCPCS: 96374; A9585; J1885

== ENCOUNTER 2017-09-15 17:14 | Inpatient (IN) | payer MEDICAID ==
--- NOTE | 2017-09-15 17:48 | CPEKG ---
Heart Rate: 66 RR Interval: 909 P-R Interval: 164 QRSD Interval: 110 QT Interval: 424 QTC Interval: 445 P [place]: 17 QRS [place]: 25 T Wave [place]: 36 EKG Severity - ABNORMAL ECG - EKG Impression: SINUS RHYTHM EKG Impression: INCOMPLETE RIGHT BUNDLE BRANCH BLOCK Electronically Signed By: Shyanne Meehan 15-Sep-2017 22:39:29
[2017-09-15] MEDS ORDERED: NS 500 ML IV ONE (17:50)
[2017-09-15 18:01] LABS: PLATELET COUNT 190 10^3/uL (150-400)
[2017-09-15 18:05] LABS: INR 1.05 (0.83-1.16); PROTIME(PATIENT) 13.9 SEC (12.0-15.0)
--- NOTE | 2017-09-15 18:13 | EDPHY ---
H & P Time Seen by Provider: 09/15/17 17:39 HPI/ROS: HPI Nausea, lower abdominal pain, lightheaded, chest discomfort. 62-year-old male by private vehicle. This patient has a history of metastatic prostate cancer. He is currently on a chemotherapeutic agent orally taken once weekly. His oncologist is Dr. Mata. He has had a history of chronic vertigo thought to be secondary to his chemotherapy. He is prescribed meclizine for this chronically. He reports that since Monday he has had his usual vertigo but has also had increasing lightheadedness which she states is worse when he stands up from sitting. He reports that he is also almost passed out a couple of times. He also complains of nausea and worsening left lower quadrant abdominal pain described as sharp and aching since Monday but worse over the last 2 days. He also reports that when he eats or stress is himself he feels his heart racing and developed left upper chest pain with radiation into the left shoulder and arm which is described as an aching sensation. ROS: Constitutional: No fever, no chills. As above. Eyes: No discharge. No changes in vision. ENT: No sore throat. No nasal congestion or rhinorrhea. Respiratory: No cough. No shortness of breath. Cardiac: As above. Gastrointestinal: As above, no vomiting, no diarrhea. Genitourinary: No hematuria. No dysuria or increased frequency with urination. Musculoskeletal: No back pain. No neck pain. No myalgias or arthralgias. Skin: No rashes. Neurological: No headache. No focal weakness or altered sensation. Past medical history: Anxiety, concussion, GERD, orthopedic surgeries. As above. Social history: Here by himself. Nonsmoker. No alcohol. The patient lives alone. Physical Exam: General Appearance: Alert, no distress, mildly anxious. This patient is responding to questions appropriately and in full sentences. This patient appears well-hydrated and well-nourished. Eyes: Pupils equal and round and reactive to light at 3-2 mm bilaterally, no pallor or injection. No lid edema, erythema or injection. ENT, Mouth: Mucous membranes are moist. The pharyngeal tissues are unremarkable. No edema or swelling. No asymmetry suggestive of abscess. No erythema or exudates. Respiratory: There are no retractions, lungs are clear to auscultation with good air movement bilaterally. Cardiovascular: Regular rate and rhythm. No murmur appreciated. Gastrointestinal: Abdomen is soft with mild to moderate left lower quadrant tenderness on palpation., no masses, bowel sounds normal. No focal tenderness at McBurney's point. No Tidwell sign. Neurological: Motor sensory function is grossly intact. Cranial nerves are normal. Cerebellar function is normal. Skin: Warm and dry, no rashes. Musculoskeletal: Neck is supple and nontender. No pain on flexion of the neck. Extremities are symmetrical. All joints range without pain or impingement. Psychiatric: No agitation. No depression. Database: EKG: EKG time is 5:43 p.m.; EKG shows a narrow complex normal sinus rhythm with a ventricular rate of 66. Incomplete right bundle branch block noted. The OK, QRS , QT intervals are within normal limits. There are no ST-T wave changes indicative of ischemic or injury pattern. No evidence of right heart strain. Interpreted by me. Imaging: CT scan of abdomen and pelvis with IV contrast: No evidence of diverticulitis. Diverticulosis noted. No significant constipation. No obstruction. No pathologic fractures. Atrophic pancreas. No significant change from prior study. Results were discussed with staff radiologist Dr. Jericho Grove. Chest x-ray AP portable; the cardiac mediastinal silhouette is unremarkable. No evidence of infiltrate or pneumothorax. No acute cardiopulmonary disease process noted. Interpreted by me. Procedures: Emergency department course: Triage vital signs reviewed. He is moderately hypertensive. Vital signs otherwise normal. IV was placed. He was started on IV normal saline with 500 cc to be given over the next hour. EKG obtained and reviewed by myself. Currently he does not have any chest pain. He consents to CT imaging of his abdomen and pelvis to evaluate for possible diverticulitis. 7:30 p.m., patient re-evaluated. He is resting comfortably at this time. Repeat neurologic Assessment is nonfocal. Results of his emergency department workup discussed with him. At this time the patient does not feel comfortable going home. He does live alone. He does have some concerning complaints although his emergency department workup has been reassuring. Hospitalist paged. 7:40 p.m., discussed case with hospitalist, Dr. David Martinez. He accepts this patient for admission. The patient's remaining emergency department course under my care has been uneventful. The patient was admitted in stable condition to the hospitalist service. Differential Diagnosis: The differential diagnosis on this patient includes but is not limited to acute coronary syndrome, diverticulitis, arrhythmia, dehydration, medication reaction. This represents a partial list of diagnoses considered. These considerations are based on history, physical exam, past history, reassessment and diagnostic testing. Smoking Status: Never smoked Constitutional: Initial Vital Signs Temperature (C) 37.1 C 09/15/17 17:17 Heart Rate 74 09/15/17 17:17 Respiratory Rate 16 09/15/17 17:17 Blood Pressure 158/84 H 09/15/17 17:17 O2 Sat (%) 97 09/15/17 17:17 O2 Delivery Mode Room Air O2 (L/minute) 2 Allergies/Adverse Reactions: NSAIDS (Non-Steroidal Anti-Inflamma Allergy (Mild, Verified 09/15/17 17:17) GI irritation Home Medications: Medication Instructions Recorded Herbals/Supplements -Info Only 1 ea PO DAILY 01/12/17 Meclizine HCl [Meclizine HCl 12.5 25 mg PO DAILY PRN 01/12/17 mg (*)] Ondansetron Odt [Zofran Odt 4 mg 8 mg PO Q8H PRN 01/12/17 (*)] Acetaminophen [Tylenol 325mg (*)] 650 mg PO Q4HRS PRN tab 01/15/17 Cyclobenzaprine [Flexeril 10 MG 10 mg PO TID PRN 10 Days #30 tab 01/15/17 (*)] Docusate Sodium [Colace 100 MG (*)] 100 mg PO BID #100 cap 01/15/17 Hydrocodone/Acetaminophen [Teague 1 - 2 tab PO Q6H PRN #60 tablet 01/15/17 5/325 (*)] Pantoprazole Sodium [Protonix 40mg 40 mg PO DAILY #30 tab 01/15/17 (*)] Diazepam [Valium 5 MG (*)] 5 mg PO TID PRN #15 tab 01/18/17 Ketorolac Tromethamine [Toradol] 10 mg PO Q6H #16 tab 01/18/17 Abiraterone Acetate [Zytiga] 1,000 mg PO DAILY 09/15/17 predniSONE [Prednisone] 5 mg PO 09/15/17 Medical Decision Making - Diagnostics Imaging Results: Imaging Impressions Chest X-Ray 09/15/17 17:50 Impression: No evidence for acute cardiopulmonary abnormality. Stable mild cardiomegaly. Other chronic findings as above. - Data Points Laboratory Results: Laboratory Results 09/15/17 17:45 09/15/17 17:45 09/15/17 09/15/17 09/15/17 18:59 17:45 17:45 WBC RBC Hgb Hct MCV MCH MCHC RDW Plt Count MPV Neut % (Auto) Lymph % (Auto) Bradley % (Auto) Eos % (Auto) Baso % (Auto) Nucleat RBC Rel Count Absolute Neuts (auto) Absolute Lymphs (auto) Absolute Monos (auto) Absolute Eos (auto) Absolute Basos (auto) Absolute Nucleated RBC Immature Gran % Immature Gran # PT 13.9 SEC SEC (12.0-15.0) INR 1.05 (0.83-1.16) APTT 28.3 SEC SEC (23.0-38.0) Sodium 132 mEq/L L mEq/L (135-145) Potassium 4.0 mEq/L mEq/L (3.3-5.0) Chloride 101 mEq/L mEq/L (97-110) Carbon Dioxide 22 mEq/l mEq/l (22-31) Anion Gap 9 mEq/L mEq/L (8-16) BUN 7 mg/dL mg/dL (7-23) Creatinine 0.8 mg/dL mg/dL (0.7-1.3) Estimated GFR > 60 Glucose 129 mg/dL H mg/dL (70-100) Calcium 9.3 mg/dL mg/dL (8.5-10.4) Total Bilirubin 2.5 mg/dL H mg/dL (0.1-1.4) Conjugated Bilirubin 0.3 mg/dL mg/dL (0.0-0.5) Unconjugated Bilirubin 2.2 mg/dL H mg/dL (0.0-1.1) AST 15 IU/L L IU/L (17-59) ALT 27 IU/L IU/L (21-72) Alkaline Phosphatase 68 IU/L IU/L (38-126) POC Troponin I 0.01 ng/mL ng/mL (0.00-0.08) NT-Pro-B Natriuret Pep 95 pg/mL pg/mL (0-125) Total Protein 7.0 g/dL g/dL (6.3-8.2) Albumin 4.0 g/dL g/dL (3.5-5.0) Lipase 53 IU/L IU/L (23-300) 09/15/17 17:45 WBC 11.29 10^3/uL H 10^3/uL (3.80-9.50) RBC 4.71 10^6/uL 10^6/uL (4.40-6.38) Hgb 15.1 g/dL g/dL (13.7-17.5) Hct 42.8 % % (40.0-51.0) MCV 90.9 fL fL (81.5-99.8) MCH 32.1 pg pg (27.9-34.1) MCHC 35.3 g/dL g/dL (32.4-36.7) RDW 12.3 % % (11.5-15.2) Plt Count 190 10^3/uL 10^3/uL (150-400) MPV 9.9 fL fL (8.7-11.7) Neut % (Auto) 79.8 % H % (39.3-74.2) Lymph % (Auto) 12.5 % L % (15.0-45.0) Bradley % (Auto) 6.6 % % (4.5-13.0) Eos % (Auto) 0.4 % L % (0.6-7.6) Baso % (Auto) 0.3 % % (0.3-1.7) Nucleat RBC Rel Count 0.0 % % (0.0-0.2) Absolute Neuts (auto) 9.02 10^3/uL H 10^3/uL (1.70-6.50) Absolute Lymphs (auto) 1.41 10^3/uL 10^3/uL (1.00-3.00) Absolute Monos (auto) 0.75 10^3/uL 10^3/uL (0.30-0.80) Absolute Eos (auto) 0.04 10^3/uL 10^3/uL (0.03-0.40) Absolute Basos (auto) 0.03 10^3/uL 10^3/uL (0.02-0.10) Absolute Nucleated RBC 0.00 10^3/uL 10^3/uL (0-0.01) Immature Gran % 0.4 % % (0.0-1.1) Immature Gran # 0.04 10^3/uL 10^3/uL (0.00-0.10) PT INR APTT Sodium Potassium Chloride Carbon Dioxide Anion Gap BUN Creatinine Estimated GFR Glucose Calcium Total Bilirubin Conjugated Bilirubin Unconjugated Bilirubin AST ALT Alkaline Phosphatase POC Troponin I NT-Pro-B Natriuret Pep Total Protein Albumin Lipase Medications Given: Discontinued Medications Sodium Chloride (Ns) 500 mls @ 1,000 mls/hr IV EDNOW ONE PRN Reason: Protocol Stop: 09/15/17 18:19 Last Admin: 09/15/17 18:25 Dose: 500 mls Point of Care Test Results: Chemistry 09/15/17 18:59 POC Troponin I 0.01 ng/mL ng/mL (0.00-0.08) Departure - Departure Disposition: [facility] Inpatient Acute Clinical Impression: Abdominal pain, Chest discomfort, Near syncope, Hyperbilirubinemia, History of metastatic prostate cancer, Prostate cancer Referrals: Aaron Bingham MD [Primary Care Provider] - As per Instructions
[2017-09-15] MEDS ORDERED: LORazepam 0.5 MG TAB PO PRN (22:46)
[2017-09-15] MEDS ORDERED: ONDANSETRON 4 MG/2 ML VIAL IVP PRN (22:46)
[2017-09-15] MEDS ORDERED: MECLIZINE HCL 12.5 MG TAB PO PRN (23:06)
--- NOTE | 2017-09-15 23:06 | PDGENHP ---
History and Physical - Chief Complaint Lightheadedness, nausea, lower abdominal pain - History of Present Illness Source-patient provides history appears reliable. EMR was reviewed and case discussed with accepting hospitalist provider. 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 Patient reports that over the past week he has had significantly declined oral intake or oral hydration. He also reports that he has been having melanic stools. He has not had chronic nausea without any vomiting worsened with movement and his vertigo. In addition to his baseline symptoms patient reports that he has been increasingly lightheaded without any syncope. Two days ago patient reports a singular episode of substernal chest pressure with radiation to his left arm. This was associated after eating. Patient's abdominal pain which is diffuse and crampy is also associated sometime after eating. Patient was admitted 01/20 for melanic stools and evaluation with EGD and colonoscopy was revealing for gastritis mild and Quevedo's esophagus. No active bleeding was identified during this study. It was felt patient's bleeding was associated with some his chronic use of NSAIDs at that time. Patient reports that he no longer takes any NSAID therapy. He has also cut out caffeine and other caustic substances from his diet. Patient has not been on a PPI therapy for the last 3 months. He was treating symptomatic Amna but was not aware if he needed to be on this daily. He has not had follow-up with GI since his procedure. Patient reports that he feels bloated and on as though he is constipated and notes some tenesmus. Patient's last bowel movement was this morning was loose and black tarry. History Information - Allergies/Home Medication List Allergies/Adverse Reactions: NSAIDS (Non-Steroidal Anti-Inflamma Allergy (Mild, Verified 09/15/17 17:17) GI irritation Home Medications: Herbals/Supplements -Info Only 1 ea PO DAILY 01/12/17 [Last Taken Unknown] Meclizine HCl [Meclizine HCl 12.5 mg (*)] 25 mg PO BID PRN 01/12/17 [Last Taken 09/15/17] Abiraterone Acetate [Zytiga] 1,000 mg PO HS 09/15/17 [Last Taken 09/14/17] Acetaminophen [Tylenol ES 500 mg (*)] 500 - 1,000 mg PO TID PRN 09/15/17 [Last Taken 09/15/17 X2 DOSES] Docusate Sodium [Colace 100 MG (*)] 100 mg PO BID PRN 09/15/17 [Last Taken 09/13] predniSONE [Prednisone] 5 mg PO BIDMEAL 09/15/17 [Last Taken 09/15/17 09:00] I have personally reviewed and updated: family history, medical history, social history, surgical history - Past Medical History Additional medical history: Prostate cancer with metastatic disease locally, GERD, Quevedo's esophagus, history of upper GI bleeding status post EGD 2016, hiatal hernia, 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 - Family History Additional family history: Brother due to melanoma, father with history of melanoma. No diabetes or hypertension in the family. - Social History Smoking Status: Never smoked Alcohol Use: None Drug Use: None Additional social history: Cor status-full Review of Systems Review of Systems: ROS: 10pt was reviewed & negative except for what was stated in HPI & below Constitutional: Reports: chills, other (Some flushing and sweats today). Denies : fever EENMT: Reports: blurred vision (Progressive vision blurring patient is supposed to be wearing bifocals), nose congestion (Chronic sinusitis). Denies: eye pain , throat swelling Cardiac: Reports: chest pain (The patient had some postprandial central substernal chest pressure a few days ago that radiated to shoulder and left arm. He denies any associated shortness of breath diaphoresis or nausea vomiting at that time.), lightheadedness. Denies: edema, palpitations, syncope Respiratory: Reports: no symptoms Gastrointestinal: Reports: black stools (Black tarry stools over last few days.) , abdominal pain (Diffuse abdominal cramping and distension.), abdominal distention, nausea. Denies: diarrhea Genitourinary: Reports: other (Patient was some difficulties initiating stream.) . Denies: dysuria, hematuria Muscolosketal: Reports: joint pain (Chronic knee pain), muscle pain (Patient with recent muscle aching in the last few days.) Skin: Reports: other (Sebaceous cysts back) Neurological: Reports: anxiety, headache (Occasional migraine headaches), other (Chronic vertigo). Denies: depressed, numbness, tingling, weakness Hematologic/Lymphatic: Reports: no symptoms Physical Exam Physical Exam: Selected Entries 09/15/17 17:17 Blood Pressure Automatic Method Heart Rate 74 Respiratory 16 Rate O2 Sat (%) 97 Temperature (C) 37.1 C Blood Pressure 158/84 H Mean Arterial 108 H Pressure (MAP) O2 Delivery Room Air Mode Temperature Oral Source Temp Pulse Resp BP Pulse Ox 36.3 C 52 L 18 111/74 93 09/15/17 20:23 09/15/17 20:23 09/15/17 20:23 09/15/17 20:23 09/15/17 20:23 Constitutional: no apparent distress, appears nourished, other (NAD. Pleasant adult male is lying quietly in bed.) Eyes: PERRL, anicteric sclera, EOMI, No scleral injection Ears, Nose, Mouth, Throat: dry mucous membranes (Slightly tacky membranes), other (No nasal discharge.), No poor dentition Cardiovascular: regular rate and rhythym, no murmur, rub, or gallop, pulses symmetric bilaterally, edema (Trace lower extremity edema.) Peripheral Pulses: 1+: dorsalis-pedis (R), dorsalis-pedis (L) Respiratory: no respiratory distress, no rales or rhonchi, clear to auscultation , No respiratory distress Gastrointestinal: normoactive bowel sounds, no palpable masses, tenderness ( Mild tenderness to palpation in the mid to lower abdomen. No rebound or guarding.), distension, other (Abdomen is soft.), No guarding, No rebound Genitourinary: no bladder tenderness, No clark in urethra Skin: warm, normal color, no rashes or abrasions, No rash Musculoskeletal: full muscle strength, other (Patient sits up independently. Moves all extremities.) Neurologic: AAOx3, other (Grossly nonfocal exam.), No facial droop Psychiatric: interacting appropriately, not anxious, not encephalopathic, thought process linear, other (Patient is pleasant and cooperative.) Lab Data & Imaging Review 09/15/17 17:45 09/15/17 17:45 WBC 11.29 10^3/uL (3.80-9.50) H 09/15/17 17:45 RBC 4.71 10^6/uL (4.40-6.38) 09/15/17 17:45 Hgb 15.1 g/dL (13.7-17.5) 09/15/17 17:45 Hct 42.8 % (40.0-51.0) 09/15/17 17:45 MCV 90.9 fL (81.5-99.8) 09/15/17 17:45 MCH 32.1 pg (27.9-34.1) 09/15/17 17:45 MCHC 35.3 g/dL (32.4-36.7) 09/15/17 17:45 RDW 12.3 % (11.5-15.2) 09/15/17 17:45 Plt Count 190 10^3/uL (150-400) 09/15/17 17:45 MPV 9.9 fL (8.7-11.7) 09/15/17 17:45 Neut % (Auto) 79.8 % (39.3-74.2) H 09/15/17 17:45 Lymph % (Auto) 12.5 % (15.0-45.0) L 09/15/17 17:45 [place] % (Auto) 6.6 % (4.5-13.0) 09/15/17 17:45 Eos % (Auto) 0.4 % (0.6-7.6) L 09/15/17 17:45 Baso % (Auto) 0.3 % (0.3-1.7) 09/15/17 17:45 Nucleat RBC Rel Count 0.0 % (0.0-0.2) 09/15/17 17:45 Absolute Neuts (auto) 9.02 10^3/uL (1.70-6.50) H 09/15/17 17:45 Absolute Lymphs (auto) 1.41 10^3/uL (1.00-3.00) 09/15/17 17:45 Absolute Monos (auto) 0.75 10^3/uL (0.30-0.80) 09/15/17 17:45 Absolute Eos (auto) 0.04 10^3/uL (0.03-0.40) 09/15/17 17:45 Absolute Basos (auto) 0.03 10^3/uL (0.02-0.10) 09/15/17 17:45 Absolute Nucleated RBC 0.00 10^3/uL (0-0.01) 09/15/17 17:45 Immature Gran % 0.4 % (0.0-1.1) 09/15/17 17:45 Immature Gran # 0.04 10^3/uL (0.00-0.10) 09/15/17 17:45 PT 13.9 SEC (12.0-15.0) 09/15/17 17:45 INR 1.05 (0.83-1.16) 09/15/17 17:45 APTT 28.3 SEC (23.0-38.0) 09/15/17 17:45 Sodium 132 mEq/L (135-145) L 09/15/17 17:45 Potassium 4.0 mEq/L (3.3-5.0) 09/15/17 17:45 Chloride 101 mEq/L (97-110) 09/15/17 17:45 Carbon Dioxide 22 mEq/l (22-31) 09/15/17 17:45 Anion Gap 9 mEq/L (8-16) 09/15/17 17:45 BUN 7 mg/dL (7-23) 09/15/17 17:45 Creatinine 0.8 mg/dL (0.7-1.3) 09/15/17 17:45 Estimated GFR > 60 09/15/17 17:45 Glucose 129 mg/dL (70-100) H 09/15/17 17:45 Calcium 9.3 mg/dL (8.5-10.4) 09/15/17 17:45 Total Bilirubin 2.5 mg/dL (0.1-1.4) H 09/15/17 17:45 Conjugated Bilirubin 0.3 mg/dL (0.0-0.5) 09/15/17 17:45 Unconjugated Bilirubin 2.2 mg/dL (0.0-1.1) H 09/15/17 17:45 AST 15 IU/L (17-59) L 09/15/17 17:45 ALT 27 IU/L (21-72) 09/15/17 17:45 Alkaline Phosphatase 68 IU/L (38-126) 09/15/17 17:45 POC Troponin I 0.01 ng/mL (0.00-0.08) 09/15/17 18:59 NT-Pro-B Natriuret Pep 95 pg/mL (0-125) 09/15/17 17:45 Total Protein 7.0 g/dL (6.3-8.2) 09/15/17 17:45 Albumin 4.0 g/dL (3.5-5.0) 09/15/17 17:45 Lipase 53 IU/L (23-300) 09/15/17 17:45 Imaging Review: Portable chest, single view. History: Chest pain. Comparison: and April 2016. Findings: Heart size is mildly enlarged and unchanged. Pulmonary vascularity is normal. The lungs are clear of acute consolidation. Old posttraumatic deformity with callus is seen in the posterior seventh and eighth ribs on the right. Mild degenerative change is seen in the thoracic spine and both shoulders. Impression: No evidence for acute cardiopulmonary abnormality. Stable mild cardiomegaly. Other chronic findings as above. Dictated By: Miki Cummings MD CT Scan of the Abdomen and Pelvis (With Contrast) at 1836 hours History: Left lower quadrant abdominal pain, metastatic prostate cancer. Technique: Axial computed tomographic images of the abdomen and pelvis were obtained, with the uneventful intravenous administration of 90 mL Isovue-300 contrast. No oral contrast. Dose reduction techniques were utilized. Comparison: CT January 2017. CT Abdomen Findings: Lung bases: No pleural effusion. Small hiatal hernia. Liver: No hepatic metastasis. Biliary System: No biliary ductal dilation. Spleen: Normal. Pancreas: Fatty infiltration of the pancreas, without peripancreatic fluid. Adrenals: Normal. Kidneys: No obstruction or solid masses. Abdominal Aorta: No aneurysm. No bowel obstruction or ascites. Several mildly prominent paraaortic lymph nodes again noted, with a 16- x 15-mm lymph node left periaortic region on image #143 of series #4 , previously measuring [address] Pelvis Findings: Sigmoid diverticulosis, without diverticulitis. Abnormally-enlarged bilateral external iliac adenopathy. A right external iliac lymph node, image # 253 of series #4, measures 44 x 28 mm, previously measuring 44 x 31 mm. A left external iliac lymph node measures 20 x 30 mm, previously measuring 40 x 23 mm. A second left external iliac lymph node on image #244 of series #4 measures 35 x 21 mm, previously measuring 52 x 28 mm, slightly smaller. No distal urinary tract obstruction or bladder calculi. The appendix appears normal, without inflammatory changes. Moderate degenerative disk disease L3-L4 and L5-S1, without evidence of definite destructive osseous lesions. Moderate osteoarthritis bilateral hips also noted. Impression: 1. Bilateral pelvic metastatic lymphadenopathy, with slight improvement since the previous study. 2. Sigmoid diverticulosis, without diverticulitis, constipation, or bowel obstruction. 3. Small hiatal hernia. Findings and recommendations discussed with Emergency Department physician, Shyanne Meehan M.D., at 1900 hours, on September 15, 2017. Final report concurs with initial preliminary interpretation. Visualized and Interpreted Chest x-ray results: Yes Visualized and Interpreted imaging results: Yes EKG additional interpertation: NSR 60s. Incomplete right bundle branch block. QTC is 445. Assessment & Plan Assessment: Pleasant 62-year-old gentleman with past medical history significant for prostate cancer with mets to the, GERD and Quevedo's esophagus, chronic vertigo related to chemotherapy who presents to the emergency department today with complaints of lightheadedness, nausea and lower abdominal pain. Abdominal pain (Acute) - patient with diffuse abdominal pain. CT abdomen pelvis was not revealing for any acute findings. He does have diverticulosis without evidence of diverticulitis. Additionally patient admits to having melanic stool today and last few days. He notes postprandial abdominal pain that is diffuse in nature as well as abdominal distension and some to min as miss. Will monitor H&H which is within normal limits at this time. Check occult stool in the morning. Patient started on PPI therapy which she has not been taking see discussion below. Melena - patient without any episodes of melena since arrival to the hospital. Will plan to check an occult stool. Consider discussion with the GI in the morning as per day team. Will monitor H&H in the morning. Patient with a previous history of upper GI bleeding and underwent EGD. This was not revealing for any active bleeding but did have findings of mild gastritis as well as Quevedo's esophagus. Patient has not been on PPI therapy see in 3 months. He states he was not having symptoms and was not advised to take daily PPI for Quevedo's. Melena-as noted above Hyponatremia-likely related to patient's hypovolemia and decreased oral intake in the past week. IV fluid hydration as noted above. Hyperglycemia mildly elevated. No previous history of diabetes. Will plan to monitor a.m. Labs Chest discomfort (Acute) - patient currently without any chest pain and has not had any in several days. He reports central pressure type pain with radiation to left arm. His initial EKG and troponin are nondiagnostic. Patient's heart score is only 1. Suspect that this chest pressure was related to either esophagitis or on his current GI issues. Patient follow up with his primary care provider for discussion of further evaluation. Hyperbilirubinemia (Acute) - CT abdomen pelvis without any abnormalities for biliary dilation or liver metastases. This is likely a response to patient's dehydration. He is not complaining of any right upper quadrant abdominal pain. Will continue with IV fluids overnight and plan to repeat a CMP in the morning to look for improvement in total bilirubin. If this remains elevated consider additional testing and/or imaging. Near syncope (Acute) - patient notes that he has not had significant oral intake in the last week. Is likely component of some orthostasis. Will check orthostatic blood pressures. Continue with IV fluid hydration as noted above. The patient reports that his current lightheadedness a differs from his usual vertigo type symptoms. Fall precautions. Prostate cancer - continue patient's Zytiga which he is brought from home. Courtesy notification to Oncology as per day team. GERD/Quevedo's esophagus-patient has not been taking PPI on a regular basis for the last 3 months. Given his postprandial abdominal pain and complaint of melena will start patient on IV PPI twice daily pending further evaluation as noted above. Vertigo-chronic is thought secondary to chemotherapy. Meclizine is available p.r.n.. Dehydration-continue with IV fluid hydration overnight. FEN - IV fluids with normal saline overnight. Monitor electrolytes replace if needed. On patient may have diet before midnight and then NPO pending further evaluation of his reported melena. PPX-SCDs holding anticoagulation with report of melena. Cor status-full Disposition-patient admitted observation status on medical oncology for IV hydration and further evaluation of reported GI bleeding.
[2017-09-15] MEDS: ACETAMINOPHEN 325 MG TAB PO PRN (23:43)
[2017-09-15] MEDS: NS 1,000 ML IV SCH (23:43)
[2017-09-15] MEDS ORDERED: Abiraterone Acetate [Zytiga] 1,000 MG PO SCH (23:45)
[2017-09-15] MEDS ORDERED: CYCLOBENZAPRINE 10 MG TAB PO PRN (23:55)
[2017-09-15] MEDS ORDERED: DOCUSATE SODIUM 100 MG CAP PO PRN (23:55)
[2017-09-16] MEDS: PANTOPRAZOLE SODIUM 40 MG VIAL IVP SCH ×3 (00:41→21:27)
[2017-09-16] MEDS: predniSONE 5 MG TAB PO SCH ×3 (00:55→18:47)
[2017-09-16] MEDS: NON-FORMULARY NEW DRUG (Abiraterone Acetate [Zytiga] 1,000 MG) PO SCH (04:49)
[2017-09-16 05:14] LABS: PLATELET COUNT 151 10^3/uL (150-400)
[2017-09-16] MEDS ORDERED: ENOXAPARIN 40 MG/0.4 ML SYR SC SCH (09:00)
[2017-09-16] MEDS: NS 1,000 ML IV SCH ×2 (09:18→21:25)
--- NOTE | 2017-09-16 10:41 | HOSPPROG ---
Hospitalist Progress Note Assessment/Plan: #Dehydration -cont IVF today. He is still dehydrated #Nausea -Cont antiemetics, he has not needed any recently #Abd Pain -much improved -cont Protonix IV BID -CT was unrevealing #?Melena -no melena here -Occult blood was negative -will repeat test -Hgb with slight decrease after hydration, monitor for now -hold Lovenox #Hyponatremia, resolved #Hyperbilirubinemia, resolving #Near syncope, likely due to volume deficit #Metastatic prostate cancer -Onc to see DVT proph: SCD's while ensuring no worsening anemia Regular diet PT/OT Dispo: change to inpatient, consider d/c tomorrow Subjective: feeling better, but still with limited PO intake. no cp or sob. still with abd discomfort but improving. minimal nausea. Objective: Vital Signs Temp Pulse Resp BP Pulse Ox 36.3 C 53 L 16 127/66 H 92 09/16/17 08:54 09/16/17 08:54 09/16/17 08:54 09/16/17 08:54 09/16/17 08:54 Laboratory Results 09/16/17 04:50 09/16/17 04:50 09/15/17 09/16/17 09/17/17 05:59 05:59 05:59 Intake Total 1464 500 Output Total 1200 800 Balance 264 -300 PT 13.9 SEC (12.0-15.0) 09/15/17 17:45 INR 1.05 (0.83-1.16) 09/15/17 17:45 - Physical Exam Constitutional: no apparent distress Eyes: PERRL, EOMI Ears, Nose, Mouth, Throat: dry mucous membranes Cardiovascular: regular rate and rhythym, No edema Respiratory: no respiratory distress, no rales or rhonchi, clear to auscultation Gastrointestinal: normoactive bowel sounds, No tenderness, No rebound, No distension Skin: warm Musculoskeletal: generalized weakness Neurologic: AAOx3 Psychiatric: interacting appropriately, not anxious, not encephalopathic Lymph, Heme, Immunologic: No petechiae ICD10 Worksheet Patient Problems: Problems Problem Status Onset Abdominal pain Acute Chest discomfort Acute Hyperbilirubinemia Acute Near syncope Acute Prostate cancer Acute 08/21/13 Ataxia Acute Back pain Acute Febrile neutropenia Acute 03/30/14 Sinusitis Acute
--- NOTE | 2017-09-16 11:05 | PDMN ---
Medical Necessity Medical necessity: C/M review: : est. > 2 MN LOS for eval and TX of acute - dehydration, nausea, abdominal pain (much improved 09/16/2017), questionable melena, hyponatremia - resolved, hyperbilirubinemia - resolved, near syncope likely due to volume deficit requiring 09/16/2017 repeat stool occult blood test , planned Oncology consult, ongoing IV fluids, antiemetics, IV Protonix, hold Lovenox, acute inpt PT/OT, comorbid metastatic prostate cancer per 09/16/2017 Hospitalist progress note.
[2017-09-16] MEDS: ACETAMINOPHEN 325 MG TAB PO PRN ×2 (11:21→21:30)
--- NOTE | 2017-09-16 12:06 | ASMTCMCOM ---
CM Note CM Note Notes: CM reviewed Pt's record for D/C planning. Pt c/o chest pain, near syncope, abdominal pain and is having ongoing treatment for prostate cancer. He is hospitalized for IV hydration and evaluation of reported GI bleeding. This Pt lives alone and has a hx of anxiety. Pt's D/C planning needs will continue to be evaluated. D/C Plan: TBD Date Signed: 09/16/2017 12:05 PM Electronically Signed By:Roxane Castañeda
[2017-09-16] MEDS ORDERED: GADOBUTROL 10 ML VIAL IVP ONE (13:00)
--- NOTE | 2017-09-16 13:29 | GCON ---
[f rep st] CONSULTATION INPATIENT ONCOLOGY CONSULTATION. DATE OF CONSULTATION: 09/16/2017 REFERRING PHYSICIAN: Noel Maier MD OUTPATIENT ONCOLOGIST: Dr. Kristen Mata. REASON FOR CONSULTATION: Metastatic prostate cancer. HISTORY OF PRESENT ILLNESS: The patient is a 62-year-old man with a history of metastatic, castrate- resistant prostate cancer. He is typically seen by Dr. Mata in our clinic, [place] and has not been seen since February 2017. He presented in 2012 with metastatic disease in disseminated lymph nodes, but no bone involvement. He was on Lupron and bicalutamide in 2013 and received Taxotere from March 2014 to July 2014. In January 2017, he was started on Lupr on and Zytiga, an oral anti-testosterone, and he has remained on that therapy since then. His most r ecent PSA was from February 2017, which was 165. Again, due to some family illnesses, [place] and has not seen Dr. Mata in 7 months. He says for the past several days he has had some nausea, as well as some migraine-type headaches. He came in and was clinically dehydrated. A CT scan of the abdomen showed a relatively stable pelvic ad enopathy with no apparent cause for his symptoms. He is feeling somewhat better after hydration. A PSA from today is pending. PAST MEDICAL HISTORY: Gastritis due to NSAID use, otherwise unremarkable. CURRENT MEDICATIONS: Include Flexeril, meclizine, Protonix, prednisone 5 mg p.o. b.i.d., and Zytiga 1000 mg p.o. daily. ALLERGIES: He is allergic to NSAIDs. FAMILY HISTORY: Noncontributory. SOCIAL HISTORY: He lives alone. He is a nonsmoker, nondrinker. REVIEW OF SYSTEMS: Aside from pertinent positives in the HPI, a 14-point review of systems is negati ve. EXAMINATION: VITAL SIGNS: Temperature was 36.3, blood pressure 127/66, heart rate 53, oxygen satura tion 92% on 2 L. GENERAL: He was in no acute distress. HEENT: Sclerae anicteric. Oropharynx is c lear. NECK: Supple, without lymphadenopathy. LUNGS: Clear to auscultation bilaterally. CARDIAC: Regular rate and rhythm. No murmurs, gallops, or rubs. ABDOMEN: Normoactive bowel sounds, nontend er, nondistended. EXTREMITIES: Without edema. 2+ pulses. NEUROLOGICAL: Is alert and oriented x3. LABORATORY DATA: Sodium 8.19, hemoglobin 13, platelets of 151. Sodium 142, potassium 4.0, chloride 111, bicarb 23, BUN 5, creatinine 0.6, calcium 8.1, total bilirubin 1.7, AST 11, ALT 23, alkaline anish sphatase 52. IMPRESSION: This is a 62-year-old man, currently receiving Zytiga for prostate cancer. The etiology of his nausea is not clear. Certainly I would not expect it to be a side effect of Zytiga since he has been on that for so long. It could be unrelated to his cancer. He does have some neurological s ymptoms, such as headache and dizziness, and I think it is worth getting a brain MRI to rule out intr acranial metastases, though that is very rarely seen in prostate cancer. The most likely explanation is an unrelated cause. RECOMMENDATIONS: 1. PSA is ordered and is pending to assess his disease status. He may need more imaging, such as a bone scan, particularly if the PSA is higher. 2. Will order a brain MRI to rule out intracranial metastases. 3. He needs outpatient followup with Dr. Mata in the next several weeks after discharge. Typically , patients with metastatic cancer are seen every 3 months at a minimum in clinic. Thank you for this consultation. We will continue to follow the patient with you while he is in the hospital. /[id number]/MODL
[2017-09-16] MEDS ORDERED: DIAZEPAM 5 MG/ML 1 ML SYR IVP ONE (13:38)
[2017-09-17] MEDS: NON-FORMULARY NEW DRUG (Abiraterone Acetate [Zytiga] 1,000 MG) PO SCH (00:14)
[2017-09-17] MEDS: ACETAMINOPHEN 325 MG TAB PO PRN ×2 (04:33→08:49)
[2017-09-17 05:17] LABS: PLATELET COUNT 164 10^3/uL (150-400)
[2017-09-17 08:23] VITALS: BP 121/75
[2017-09-17] MEDS: PANTOPRAZOLE SODIUM 40 MG VIAL IVP SCH (08:47)
[2017-09-17] MEDS: predniSONE 5 MG TAB PO SCH (08:47)
--- NOTE | 2017-09-17 10:27 | SOAPPROG ---
SOAP Progress Note Assessment/Plan: Assessment: 1. Metastatic prostate cancer 2. Nausea - likely viral syndrome PSA 19 - about 10% of what it was 7 months ago. Indicates a very good response to therapy. Brain MRI normal. Plan: - continue zytiga and prednisone - f/u with Dr. Mata as an outpatient in 1 month - current admission does not appear related to his cancer or its treatment. Will sign off. please call if additional questions arise. 09/17/17 10:26 Subjective: feels better today. no more nausea. Objective: exam: NAD Lungs CTAB CV RRR no MGR Abd: +BS NT ND Ext: no edema Neuro: a+ox3 Vital Signs Temp Pulse Resp BP Pulse Ox 36.6 C 58 L 18 121/75 H 95 09/17/17 08:00 09/17/17 08:00 09/17/17 08:00 09/17/17 08:00 09/17/17 08:00 Laboratory Results 09/17/17 05:08 09/17/17 04:20 09/16/17 09/17/17 09/18/17 05:59 05:59 05:59 Intake Total 800 Output Total 3025 450 Balance -2225 -450 PT 13.9 SEC (12.0-15.0) 09/15/17 17:45 INR 1.05 (0.83-1.16) 09/15/17 17:45 ICD10 Worksheet Patient Problems: Problems Problem Status Onset Abdominal pain Acute Chest discomfort Acute Hyperbilirubinemia Acute Near syncope Acute Prostate cancer Acute 08/21/13 Ataxia Acute Back pain Acute Febrile neutropenia Acute 03/30/14 Sinusitis Acute
--- NOTE | 2017-09-17 12:50 | ASMTLACE ---
MATTEO Length of stay for Answers: 1 day current admission Acuity / Level of Answers: Yes Care: Did the patient have an inpatient admission? Comorbidities - select Answers: Other Notes: metestatic prostate all that apply cancer # of Emergency department Answers: 0 visits in the last 6 months Social determinants Answers: Lack of community resources and/or lack of social support (no pcp, lives alone, transportation, enrique d) Score: 9 Date Signed: 09/17/2017 12:49 PM Electronically Signed By:Haley Hale RN
--- NOTE | 2017-09-17 12:53 | ASMTCMCOM ---
CM Note CM Note Notes: Chart reviewed. Patient has been medically cleared for dc to home. No needs identiifed. CM available should needs arise. PLan: dc to home independent. Date Signed: 09/17/2017 12:52 PM Electronically Signed By:Haley Hale RN
--- NOTE | 2017-09-17 13:08 | PDDCSUM ---
Discharge Summary Discharge Summary: HPI/Hospital Course: 62 yo Male admitted with dehydration, nausea, abd pain and concern for melena. He was admitted. Melena and GI Bleed were rule out as occult blood testing was negative and Hgb was stable. He was given IVF and PPI and antiemetics and he is now back to baseline. He is tolerating a regular diet. He is ambulating w/o difficulty. He will f/u with Dr. Mata in one week. PSA is decreased. Protonix was started. Otherwise, no other medication changes. DDX: #Dehydration #Nausea #Abd Pain -much improved -cont Protonix PO -CT was unrevealing #?Melena -no melena here -Occult blood was negative #Hyponatremia, resolved #Hyperbilirubinemia, resolving #Near syncope, likely due to volume deficit #Metastatic prostate cancer -Onc to see Exam: vss NAD AAOX3 RRR CTA B S/NT/ND NO LE EDEMA MEDS: SEE MED REC F/U: PER ABOVE TOTAL TIME SPENT ON D/C IS 35 MINS
== END 2017-09-17 13:22 | disposition home or self-care (01) | DRG 422 ==
LOC: F1N 20:18 → OBSVTOIN 09-16 10:43
PROVIDERS: ADMIT Internal Medicine; ATTEND Internal Medicine
DX: E86.0 Dehydration (principal); C79.82 Secondary malignant neoplasm of genital organs; E87.1 Hypo-osmolality and hyponatremia; R11.0 Nausea; E80.6 Other disorders of bilirubin metabolism; K21.9 Gastro-esophageal reflux disease without esophagitis; K22.719 Barrett's esophagus with dysplasia, unspecified; K44.9 Diaphragmatic hernia without obstruction or gangrene; J32.9 Chronic sinusitis, unspecified
CPT/HCPCS: 84484-PO; 97161-GP; A9585; G0378; G8978-GP-CI; G8979-GP-CI; G8980-GP-CI; J1650; J3360; J7512

== ENCOUNTER 2017-10-11 20:55 | Inpatient (IN) | payer MEDICAID ==
--- NOTE | 2017-10-11 21:36 | CPEKG ---
Heart Rate: 132 RR Interval: 455 QRSD Interval: 98 QT Interval: 332 QTC Interval: 492 QRS [place]: 65 T Wave [place]: 54 EKG Severity - ABNORMAL ECG - EKG Impression: ATRIAL FIBRILLATION EKG Impression: NONSPECIFIC T ABNORMALITIES, LATERAL LEADS EKG Impression: BORDERLINE PROLONGED QT INTERVAL Electronically Signed By: Nando Shafer 12-Oct-2017 07:33:00
[2017-10-11] MEDS ORDERED: NS 1,000 ML IV ONE (21:40)
--- NOTE | 2017-10-11 21:43 | EDPHY ---
H & P Stated Complaint: stomach is beating and spasming, nausea, just stopped zytiga and prednisone Time Seen by Provider: 10/11/17 21:43 HPI/ROS: HPI CHIEF COMPLAINT: Palpitations, abdominal pain HISTORY OF PRESENT ILLNESS: 62-year-old male, history of metastatic prostate cancer, Quevedo's esophagus and GERD, degenerative joint disease, presents emergency room with abdominal pain and palpitations. Patient states that over the past week he has been sick with abdominal discomfort initially constipation , took MiraLax and has had diarrhea. Denies any chest pain or shortness of breath. However noticed tonight that he had palpitations of his mid epigastric region. He denies chest pain or shortness of breath associated with this. Denies lightheadedness or dizziness. Unsure what was causing his palpitations in his abdomen he decided come to the emergency room. No recent fever. Past Medical History: Includes Quevedo's esophagus, metastatic prostate cancer undergoing treatment, GERD, degenerative disc disease Past Surgical History: Elbow surgery Social History: He denies daily use of tobacco or drugs. Occasional alcohol use. Family History: Noncontributory ROS REVIEW OF SYSTEMS: A comprehensive 10 point review of systems is otherwise negative aside from elements mentioned in the history of present illness. Exam Constitutional nontoxic. triage nursing summary reviewed, vital signs reviewed , awake/alert. Vital signs noted to be in triage tachycardic Eyes normal conjunctivae and sclera, EOMI, PERRLA. HENT normal inspection, atraumatic, moist mucus membranes, no epistaxis, neck supple/ no meningismus, no raccoon eyes. Respiratory clear to auscultation bilaterally, normal breath sounds, no respiratory distress, no wheezing. Cardiovascular tachycardic, irregular, irregular rhythm, no murmur, no edema, distal pulses normal. Gastrointestinal soft, non-tender, no rebound, no guarding, normal bowel sounds, no distension, no pulsatile mass. Genitourinary no CVA tenderness. Musculoskeletal no midline vertebral tenderness, full range of motion, no calf swelling, no tenderness of extremities, no meningismus, good pulses, neurovascularly intact. Skin pink, warm, & dry, no rash, skin atraumatic. Neurologic awake, alert and oriented x 3, AAOx3, moves all 4 extremities equally, motor intact, sensory intact, CN II-XII intact, normal cerebellar, normal vision, normal speech. Psychiatric normal mood/affect. Heme/Lymph/Immune no lymphadenopathy. Differential diagnosis includes but is not limited to and in no particular order : Bowel obstruction, appendicitis, gallbladder disease, diverticulitis, colitis , enteritis, perforated viscus, gastritis, GERD, esophagitis, urinary tract infection, pyelonephritis, kidney stones Differential diagnosis includes but is not limited to: ACS, atypical chest pain, pneumothorax, pneumonia, pulmonary embolism, aortic dissection, congestive heart failure, tumor, musculoskeletal pain, esophageal pain, GERD, peptic ulcer disease, pancreatitis Medical Decision Making: Plan for this patient IV established with IV fluid bolus, obtain EKG, rule out acute coronary syndrome, chest x-ray, CT scan abdomen pelvis with IV contrast, diltiazem 10 mg IV for AFib, re-evaluate. Re-evaluation: EKG interpretation by me on record in [facility] system. Impression time of EKG 2133, AFib rate of [address] depression most likely rate-related in V4 V5 V6. CT scan abdomen pelvis with IV contrast shows no evidence of acute inflammatory process. No evidence of ruptured AAA or AAA. 2257: Patient re-evaluated this time heart rate 102 still in AFib, blood pressure 126/88, pulse ox 90% on room air. Patient need to be admitted for new onset AFib. EKG interpretation by me on record in [facility] system. Impression this is a repeat EKG time a repeat EKG 4, AFib rate of 143. No acute ischemic change. Diltiazem drip ordered. Patient be admitted the hospital service for AFib with RVR. Source: Patient - Personal History Current Tetanus/Diphtheria Vaccine: Yes Tetanus Vaccine Date: 2015 - Medical/Surgical History Hx Asthma: No Hx Chronic Respiratory Disease: No Hx Diabetes: No Hx Cardiac Disease: No Hx Renal Disease: No Hx Cirrhosis: No Hx Alcoholism: No Hx HIV/AIDS: No Hx Splenectomy or Spleen Trauma: No Other PMH: Prostate CA w/mets to lymphnodes, ORIF left elbow-2006. anxiety, CONCUSSION 11/16. GERD, DJD - Social History Smoking Status: Never smoked Constitutional: Initial Vital Signs Temperature (C) 35.6 C L 10/11/17 21:09 Heart Rate 87 10/11/17 21:09 Respiratory Rate 20 10/11/17 21:09 Blood Pressure 108/86 H 10/11/17 21:09 O2 Sat (%) 96 10/11/17 21:09 O2 Delivery Mode Nasal Cannula O2 (L/minute) 2 Allergies/Adverse Reactions: NSAIDS (Non-Steroidal Anti-Inflamma Allergy (Mild, Verified 09/15/17 17:17) GI irritation Home Medications: Medication Instructions Recorded Herbals/Supplements -Info Only 1 ea PO DAILY 01/12/17 Meclizine HCl [Meclizine HCl 12.5 25 mg PO BID PRN 01/12/17 mg (*)] Cyclobenzaprine [Flexeril 10 MG 10 mg PO TID PRN 10 Days #30 tab 01/15/17 (*)] Diazepam [Valium 5 MG (*)] 5 mg PO TID PRN #15 tab 01/18/17 Abiraterone Acetate [Zytiga] 1,000 mg PO HS 09/15/17 Acetaminophen [Tylenol ES 500 mg 500 - 1,000 mg PO TID PRN 09/15/17 (*)] Docusate Sodium [Colace 100 MG (*)] 100 mg PO BID PRN 09/15/17 predniSONE [Prednisone] 5 mg PO BIDMEAL 09/15/17 Pantoprazole Sodium [Protonix] 40 mg PO DAILY #30 tablet. 09/17/17 Medical Decision Making - Diagnostics Imaging Results: Imaging Impressions Chest X-Ray 10/11/17 21:51 Impression: 1. No acute pulmonary disease. 2. Mild cardiomegaly. 3. Consider chest two views when the patient's medical condition permits. - Data Points Laboratory Results: Laboratory Results 10/11/17 21:46 10/11/17 21:46 10/11/17 10/11/17 10/11/17 22:20 21:46 21:46 WBC RBC Hgb Hct MCV MCH MCHC RDW Plt Count MPV Neut % (Auto) Lymph % (Auto) Ware % (Auto) Eos % (Auto) Baso % (Auto) Nucleat RBC Rel Count Absolute Neuts (auto) Absolute Lymphs (auto) Absolute Monos (auto) Absolute Eos (auto) Absolute Basos (auto) Absolute Nucleated RBC Immature Gran % Immature Gran # PT INR APTT VBG Lactic Acid 1.7 mmol/L mmol/L (0.7-2.1) Sodium 134 mEq/L L mEq/L (135-145) Potassium 3.3 mEq/L mEq/L (3.3-5.0) Chloride 106 mEq/L mEq/L (97-110) Carbon Dioxide 18 mEq/l L mEq/l (22-31) Anion Gap 10 mEq/L mEq/L (8-16) BUN 7 mg/dL mg/dL (7-23) Creatinine 0.8 mg/dL mg/dL (0.7-1.3) Estimated GFR > 60 Glucose 114 mg/dL H mg/dL (70-100) Calcium 9.3 mg/dL mg/dL (8.5-10.4) Magnesium 2.1 mg/dL mg/dL (1.6-2.3) Total Bilirubin 1.9 mg/dL H mg/dL (0.1-1.4) Conjugated Bilirubin 0.3 mg/dL mg/dL (0.0-0.5) Unconjugated Bilirubin 1.6 mg/dL H mg/dL (0.0-1.1) AST 21 IU/L IU/L (17-59) ALT 27 IU/L IU/L (21-72) Alkaline Phosphatase 63 IU/L IU/L (38-126) NT-Pro-B Natriuret Pep 181 pg/mL H pg/mL (0-125) Total Protein 6.8 g/dL g/dL (6.3-8.2) Albumin 4.0 g/dL g/dL (3.5-5.0) Lipase 85 IU/L IU/L (23-300) Urine Color PALE YELLOW Urine Appearance CLEAR Urine pH 7.0 (5.0-7.5) Ur Specific [place] 1.001 L (1.002-1.030) Urine Protein NEGATIVE (NEGATIVE) Urine Ketones NEGATIVE (NEGATIVE) Urine Blood NEGATIVE (NEGATIVE) Urine Nitrate NEGATIVE (NEGATIVE) Urine Bilirubin NEGATIVE (NEGATIVE) Urine Urobilinogen NEGATIVE EU EU (0.2-1.0) Ur Leukocyte Esterase NEGATIVE (NEGATIVE) Urine Glucose NEGATIVE (NEGATIVE) 10/11/17 10/11/17 21:46 21:46 WBC 7.94 10^3/uL 10^3/uL (3.80-9.50) RBC 4.62 10^6/uL 10^6/uL (4.40-6.38) Hgb 15.4 g/dL g/dL (13.7-17.5) Hct 42.3 % % (40.0-51.0) MCV 91.6 fL fL (81.5-99.8) MCH 33.3 pg pg (27.9-34.1) MCHC 36.4 g/dL g/dL (32.4-36.7) RDW 13.9 % % (11.5-15.2) Plt Count 188 10^3/uL 10^3/uL (150-400) MPV 9.9 fL fL (8.7-11.7) Neut % (Auto) 72.3 % % (39.3-74.2) Lymph % (Auto) 16.9 % % (15.0-45.0) Ware % (Auto) 9.1 % % (4.5-13.0) Eos % (Auto) 0.9 % % (0.6-7.6) Baso % (Auto) 0.5 % % (0.3-1.7) Nucleat RBC Rel Count 0.0 % % (0.0-0.2) Absolute Neuts (auto) 5.75 10^3/uL 10^3/uL (1.70-6.50) Absolute Lymphs (auto) 1.34 10^3/uL 10^3/uL (1.00-3.00) Absolute Monos (auto) 0.72 10^3/uL 10^3/uL (0.30-0.80) Absolute Eos (auto) 0.07 10^3/uL 10^3/uL (0.03-0.40) Absolute Basos (auto) 0.04 10^3/uL 10^3/uL (0.02-0.10) Absolute Nucleated RBC 0.00 10^3/uL 10^3/uL (0-0.01) Immature Gran % 0.3 % % (0.0-1.1) Immature Gran # 0.02 10^3/uL 10^3/uL (0.00-0.10) PT 13.6 SEC SEC (12.0-15.0) INR 1.02 (0.83-1.16) APTT 26.2 SEC SEC (23.0-38.0) VBG Lactic Acid Sodium Potassium Chloride Carbon Dioxide Anion Gap BUN Creatinine Estimated GFR Glucose Calcium Magnesium Total Bilirubin Conjugated Bilirubin Unconjugated Bilirubin AST ALT Alkaline Phosphatase NT-Pro-B Natriuret Pep Total Protein Albumin Lipase Urine Color Urine Appearance Urine pH Ur Specific [place] Urine Protein Urine Ketones Urine Blood Urine Nitrate Urine Bilirubin Urine Urobilinogen Ur Leukocyte Esterase Urine Glucose Medications Given: Discontinued Medications Diltiazem HCl (Cardizem 25 Mg/5 Ml Vial) 10 mg IVP EDNOW ONE Stop: 10/11/17 21:53 Last Admin: 10/11/17 22:21 Dose: 10 mg Sodium Chloride (Ns) 1,000 mls @ 0 mls/hr IV EDNOW ONE; Wide Open PRN Reason: Protocol Stop: 10/11/17 21:41 Last Admin: 10/11/17 22:19 Dose: 1,000 mls Departure - Departure Disposition: [facility] Inpatient Acute Clinical Impression: Atrial fibrillation Qualifiers: Atrial fibrillation type: unspecified Qualified Code(s): I48.91 - Unspecified atrial fibrillation Condition: Fair Referrals: Kristen Mata MD [Primary Care Provider] - As per Instructions
[2017-10-11] MEDS ORDERED: DILTIAZEM 25 MG/5 ML VIAL IVP ONE (21:52)
[2017-10-11] MEDS ORDERED: IOPAMIDOL (ISOVUE-300) 100 ML BTL ONE (22:07)
[2017-10-11 22:09] LABS: PLATELET COUNT 188 10^3/uL (150-400)
[2017-10-11 22:17] LABS: INR 1.02 (0.83-1.16); PROTIME(PATIENT) 13.6 SEC (12.0-15.0)
[2017-10-11] MEDS ORDERED: DILTIAZEM 60 MG TAB PO ONE (22:29)
[2017-10-11] MEDS ORDERED: DILTIAZEM 125 MG in D5W 125 ML IV ONE (22:56)
--- NOTE | 2017-10-11 22:56 | CPEKG ---
Heart Rate: 143 RR Interval: 420 QRSD Interval: 94 QT Interval: 332 QTC Interval: 512 QRS [place]: 54 T Wave [place]: 70 EKG Severity - ABNORMAL ECG - EKG Impression: A-FLUTTER W/ PREDOM 2:1 AV BLOCK, A-RATE 294 EKG Impression: PROLONGED QT INTERVAL Electronically Signed By: Nando Shafer 12-Oct-2017 07:33:00
[2017-10-11] MEDS ORDERED: diphenhydrAMINE 25 MG CAP PO PRN (23:14)
[2017-10-11] MEDS ORDERED: HYDROCODONE/APAP 5/325 TAB PO PRN (23:14)
[2017-10-11] MEDS ORDERED: ONDANSETRON 4 MG/2 ML VIAL IVP PRN (23:14)
[2017-10-11] MEDS ORDERED: DILTIAZEM HCL/D5W 125 ML IV SCH (23:45)
--- NOTE | 2017-10-11 23:47 | PDGENHP ---
History and Physical - Chief Complaint palpitations, abdominal pain - History of Present Illness Source-patient provides history appears reliable. EMR was reviewed and case discussed with ED provider. HPI-very pleasant 62-year-old gentleman with past medical history significant for metastatic prostate cancer to the lymph nodes in the chest, GERD with Quevedo's esophagus, degenerative joint disease L4-5 who presents emergency department with complaints of 1 week history of palpitations and abdominal discomfort. Patient with a history of increasing constipation and flushing felt secondary to his Lupron and Zytiga. Patient is followed by Dr. Mata and was recommended to hold his prednisone and Zytiga for the last 3 days. Patient denies any fevers or chills. He denies any chest pain, shortness of breath, lightheadedness or presyncope. Patient denies any myalgias. Patient does report some increasing fatigue overall feeling dehydrated. He has not had any oral intake for the last several days he reports due to his constipation. He is last bowel movement was 4 days ago which he states was on without any melena or hematochezia. Patient has had some mild nausea but no vomiting. Patient disc denies any pain in the abdomen meters felt like his abdomen was pulsating. Patient did try some bowel regimen at home including MiraLax and subsequently developed a few episodes of diarrhea which resolved. History Information - Allergies/Home Medication List Allergies/Adverse Reactions: NSAIDS (Non-Steroidal Anti-Inflamma Allergy (Mild, Verified 09/15/17 17:17) GI irritation Home Medications: Herbals/Supplements -Info Only 1 ea PO DAILY 01/12/17 [Last Taken Unknown] Meclizine HCl [Meclizine HCl 12.5 mg (*)] 25 mg PO BID PRN 01/12/17 [Last Taken 10/10/17] Abiraterone Acetate [Zytiga] 1,000 mg PO HS 09/15/17 [Last Taken 10/09/17] Acetaminophen [Tylenol ES 500 mg (*)] 500 - 1,000 mg PO TID PRN 09/15/17 [Last Taken 10/11/17] Docusate Sodium [Colace 100 MG (*)] 100 mg PO BID PRN 09/15/17 [Last Taken 09/13] predniSONE [Prednisone] 5 mg PO BIDMEAL 09/15/17 [Last Taken 10/09/17] Albuterol [Proventil Inhaler HFA (*)] 1 - 2 puffs IH DAILY PRN 10/12/17 [Last Taken Unknown] Cyanocobalamin [Vitamin B12 (*)] 1,000 mcg PO DAILY 10/12/17 [Last Taken ] Fluticasone Nasal [Flonase Nasal [place] (RX)] 1 sprays NASAL DAILY 10/12/17 [ Last Taken 10/11/17] Magnesium Oxide [Magnesium Oxide 400 mg (*)] 400 mg PO DAILY 10/12/17 [Last Taken 10/11/17] Psyllium Husk (with Sugar) [Metamucil Packet] 1 each PO DAILY 10/12/17 [Last Taken 10/11/17] Selenium [Selenium 200mcg (*)] 200 mcg PO DAILY 10/12/17 [Last Taken 10/11/17] Vitamin B Complex [Vitamin B Complex (OTC)] 1 each PO DAILY 10/12/17 [Last Taken 10/11/17] I have personally reviewed and updated: family history, medical history, social history, surgical history - Past Medical History Additional medical history: Prostate cancer with metastatic disease locally, GERD, Quevedo's esophagus, history of upper GI bleeding status post EGD 2016, hiatal hernia, 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 - Family History Additional family history: Brother due to melanoma, father with history of melanoma. No diabetes or hypertension in the family. Brother with history of CAD and [place] age 50s. - Social History Smoking Status: Never smoked Alcohol Use: Occasionally Drug Use: None Additional social history: Patient lives alone. He is retired from banking. Cor status-full. Review of Systems Review of Systems: Constitutional: Reports: other (Patient with intermittent hot flushing. No night sweats.). Denies: chills, fever EENMT: Reports: blurred vision (Patient reports his vision has been blurry for the last several days. And no ocular pain.), nose congestion (History of chronic sinusitis). Denies: sore throat Cardiac: Reports: palpitations. Denies: chest pain, edema, lightheadedness, syncope Respiratory: Denies: cough, shortness of breath Gastrointestinal: Reports: abdominal pain (See HPI), constipation, nausea. Denies: vomitting, black stools, rectal bleeding, abdominal distention Genitourinary: Reports: no symptoms Muscolosketal: Reports: back pain (Chronic lumbar pain.). Denies: muscle pain ( No myalgias.) Skin: Reports: no symptoms Neurological: Reports: headache (Occasional) Hematologic/Lymphatic: Reports: no symptoms Physical Exam Physical Exam: Selected Entries 10/11/17 21:09 Blood Pressure Automatic Method Heart Rate 87 Respiratory 20 Rate O2 Sat (%) 96 Temperature (C) 35.6 C L Blood Pressure 108/86 H Mean Arterial 93 Pressure (MAP) O2 Delivery Room Air Mode Temperature Oral Source Temp Pulse Resp BP Pulse Ox 35.6 C L 112 H 18 107/89 H 96 10/11/17 21:09 10/11/17 23:00 10/11/17 23:00 10/11/17 23:00 10/11/17 23:00 Constitutional: no apparent distress, appears nourished, other (NAD. Pleasant adult gentleman is resting comfortably in bed.) Eyes: PERRL, anicteric sclera, EOMI, No scleral injection Ears, Nose, Mouth, Throat: no oral mucosal ulcers, dry mucous membranes, other ( No nasal discharge.), No poor dentition Cardiovascular: pulses symmetric bilaterally, tachycardia, edema (Trace nonpitting edema bilateral lower extremities.) Peripheral Pulses: 2+: dorsalis-pedis (R), dorsalis-pedis (L) Respiratory: no respiratory distress, no rales or rhonchi, clear to auscultation , No expiratory wheeze, No inspiratory crackles, No respiratory distress Gastrointestinal: normoactive bowel sounds, soft, non-tender abdomen, no palpable masses, other (Obese abdomen. Soft but full.), No distension Genitourinary: no bladder tenderness, No clark in urethra Skin: warm, normal color, no rashes or abrasions Musculoskeletal: full muscle strength, other (Moves all extremities.), No generalized weakness Neurologic: AAOx3, sensation intact bilaterally, other (Nonfocal exam.), No facial droop Psychiatric: interacting appropriately, not anxious, not encephalopathic, thought process linear Lab Data & Imaging Review 10/12/17 03:40 10/12/17 03:40 WBC 7.94 10^3/uL (3.80-9.50) 10/11/17 21:46 RBC 4.62 10^6/uL (4.40-6.38) 10/11/17 21:46 Hgb 15.4 g/dL (13.7-17.5) 10/11/17 21:46 Hct 42.3 % (40.0-51.0) 10/11/17 21:46 MCV 91.6 fL (81.5-99.8) 10/11/17 21:46 MCH 33.3 pg (27.9-34.1) 10/11/17 21:46 MCHC 36.4 g/dL (32.4-36.7) 10/11/17 21:46 RDW 13.9 % (11.5-15.2) 10/11/17 21:46 Plt Count 188 10^3/uL (150-400) 10/11/17 21:46 MPV 9.9 fL (8.7-11.7) 10/11/17 21:46 Neut % (Auto) 72.3 % (39.3-74.2) 10/11/17 21:46 Lymph % (Auto) 16.9 % (15.0-45.0) 10/11/17 21:46 [place] % (Auto) 9.1 % (4.5-13.0) 10/11/17 21:46 Eos % (Auto) 0.9 % (0.6-7.6) 10/11/17 21:46 Baso % (Auto) 0.5 % (0.3-1.7) 10/11/17 21:46 Nucleat RBC Rel Count 0.0 % (0.0-0.2) 10/11/17 21:46 Absolute Neuts (auto) 5.75 10^3/uL (1.70-6.50) 10/11/17 21:46 Absolute Lymphs (auto) 1.34 10^3/uL (1.00-3.00) 10/11/17 21:46 Absolute Monos (auto) 0.72 10^3/uL (0.30-0.80) 10/11/17 21:46 Absolute Eos (auto) 0.07 10^3/uL (0.03-0.40) 10/11/17 21:46 Absolute Basos (auto) 0.04 10^3/uL (0.02-0.10) 10/11/17 21:46 Absolute Nucleated RBC 0.00 10^3/uL (0-0.01) 10/11/17 21:46 Immature Gran % 0.3 % (0.0-1.1) 10/11/17 21:46 Immature Gran # 0.02 10^3/uL (0.00-0.10) 10/11/17 21:46 PT 13.6 SEC (12.0-15.0) 10/11/17 21:46 INR 1.02 (0.83-1.16) 10/11/17 21:46 APTT 26.2 SEC (23.0-38.0) 10/11/17 21:46 VBG Lactic Acid 1.7 mmol/L (0.7-2.1) 10/11/17 21:46 Sodium 134 mEq/L (135-145) L 10/11/17 21:46 Potassium 3.3 mEq/L (3.3-5.0) 10/11/17 21:46 Chloride 106 mEq/L (97-110) 10/11/17 21:46 Carbon Dioxide 18 mEq/l (22-31) L 10/11/17 21:46 Anion Gap 10 mEq/L (8-16) 10/11/17 21:46 BUN 7 mg/dL (7-23) 10/11/17 21:46 Creatinine 0.8 mg/dL (0.7-1.3) 10/11/17 21:46 Estimated GFR > 60 10/11/17 21:46 Glucose 114 mg/dL (70-100) H 10/11/17 21:46 Calcium 9.3 mg/dL (8.5-10.4) 10/11/17 21:46 Magnesium 2.1 mg/dL (1.6-2.3) 10/11/17 21:46 Total Bilirubin 1.9 mg/dL (0.1-1.4) H 10/11/17 21:46 Conjugated Bilirubin 0.3 mg/dL (0.0-0.5) 10/11/17 21:46 Unconjugated Bilirubin 1.6 mg/dL (0.0-1.1) H 10/11/17 21:46 AST 21 IU/L (17-59) 10/11/17 21:46 ALT 27 IU/L (21-72) 10/11/17 21:46 Alkaline Phosphatase 63 IU/L (38-126) 10/11/17 21:46 NT-Pro-B Natriuret Pep 181 pg/mL (0-125) H 10/11/17 21:46 Total Protein 6.8 g/dL (6.3-8.2) 10/11/17 21:46 Albumin 4.0 g/dL (3.5-5.0) 10/11/17 21:46 Lipase 85 IU/L (23-300) 10/11/17 21:46 Urine Color PALE YELLOW 10/11/17 22:20 Urine Appearance CLEAR 10/11/17 22:20 Urine pH 7.0 (5.0-7.5) 10/11/17 22:20 Ur Specific Simon 1.001 (1.002-1.030) L 10/11/17 22:20 Urine Protein NEGATIVE (NEGATIVE) 10/11/17 22:20 Urine Ketones NEGATIVE (NEGATIVE) 10/11/17 22:20 Urine Blood NEGATIVE (NEGATIVE) 10/11/17 22:20 Urine Nitrate NEGATIVE (NEGATIVE) 10/11/17 22:20 Urine Bilirubin NEGATIVE (NEGATIVE) 10/11/17 22:20 Urine Urobilinogen NEGATIVE EU (0.2-1.0) 10/11/17 22:20 Ur Leukocyte Esterase NEGATIVE (NEGATIVE) 10/11/17 22:20 Urine Glucose NEGATIVE (NEGATIVE) 10/11/17 22:20 Imaging Review: CT Scan of the Abdomen and Pelvis (With Contrast) at 2238 hours History: Abdominal pain. Metastatic prostate cancer. Comparison: September 15, 2017 CT abdomen and pelvis. Technique: Axial computed tomographic images of the abdomen and pelvis were obtained with the uneventful intravenous administration of 90 mL Isovue 300 contrast. No oral contrast. Dose reduction techniques were utilized. CT Abdomen Findings: Lung bases: Minimal pericardial effusion. No pleural effusion. Liver: Normal. Biliary System: No Biliary ductal dilation. Spleen: Normal. Pancreas: Atrophic. Adrenals: Normal. Kidneys: No obstruction or solid masses. Abdominal Aorta: No aortic aneurysm or dissection. No bowel obstruction, ascites, or significant retroperitoneal lymphadenopathy. CT Pelvis Findings: Several bilateral external iliac lymph nodes appear slightly smaller. Right external iliac lymph node 41 x 25 mm image 298 of series 3 previously measured 44 x 28 mm. Left external iliac lymph node image 301 of series 3 measures 30 x 20 mm, unchanged. Left inguinal lymph node measuring 37 x 18 mm image 292 of series 3, previously measured 35 x 21 mm , similar. Prostate is heterogenous. No definite destructive osseous lesions. Degenerative disease at L3-L4, L4-L5 and L5-S1 levels. Impression: 1. Metastatic bilateral external iliac and left inguinal lymphadenopathy again noted with possible minimal improvement. 2. No abdominal aortic aneurysm or dissection. Chest, One View Portable at 2156 hours History: Chest Pain . Comparison: September 15, 2017. Findings: Cardiac silhouette is mildly enlarged. No pneumonia, congestive heart failure, pleural effusion, or pneumothorax. Old posterior right seventh and eighth rib fractures again noted. Impression: 1. No acute pulmonary disease. 2. Mild cardiomegaly. 3. Consider chest two views when the patient's medical condition permits. Visualized and Interpreted Chest x-ray results: Yes Visualized and Interpreted imaging results: Yes EKG additional interpertation: AFib with RVR in the 130s. No acute ST changes. QTC 492 Assessment & Plan Assessment: Pleasant 62-year-old gentleman with history of metastatic prostate cancer, Quevedo's esophagus, degenerative disc disease who presents emergency department today with complaints of palpitations and abdominal discomfort #Atrial fibrillation with RVR-patient continues to have elevated heart rate but down trending from initial evaluation into the 110 and 120s. He received a dose of IV diltiazem as well as a p. O. Dose. Patient's right however remains elevated variable up to 130s. He was started on a IV diltiazem drip in the emergency department which we will plan to continue. Echocardiogram in the morning. Single dose of therapeutic Lovenox at this time pending further evaluations. Chads Vasc 2 score currently 1 but No history of CHF in the past. Checking a TSH. Patient reports significant dehydration as well as some orthostatic symptoms. Will check orthostatic blood pressures and continue with IV fluid hydration. Cardiology consultation tomorrow as per day team. #Abdominal discomfort and palpitations - CTA imaging of the abdomen negative for any evidence of aortic aneurysm. Patient does report that he has had significant constipation despite use of stool softeners and laxatives at home he has had 1 bowel movement several days ago but again is quite dehydrated. Will continue with bowel regimen. #Constipation-as above #Metastatic prostate cancer-patient has been in contact with Dr. Mata with Oncology over the last several days due to increasing abdominal discomfort and some hot flushing. There was complete some concern for medication side effects. Courtesy call on to Oncology service tomorrow as per day team. #GERD/Quevedo's esophagus-continue Protonix. #Chronic back pain with degenerative disc disease L4-5 - supportive care. K- pad Lidoderm patch p.r.n.. # anemia - patient with history intermittent anemia this is mild. Likely anemia chronic disease but does have a remote history of GI bleed. No evidence of bleeding at this time. He did receive a dose of therapeutic Lovenox will need to monitor closely. FEN - IV fluids for hydration. Encourage oral intake as tolerated. Electrolyte monitoring replacement if needed. Cor status-full PPX-SCDs. Patient has been given single dose of therapeutic Lovenox pending echocardiogram and further stroke risk stratification setting of new onset AFib. Disposition-patient admitted inpatient status due to new onset of AFib, need for her diltiazem drip and further cardiac evaluation. Anticipate greater than 2 midnight stay.
[2017-10-12] MEDS ORDERED: ENOXAPARIN 100 MG/ML SYR SC ONE (00:15)
[2017-10-12] MEDS ORDERED: ALBUTEROL 3 ML DEYVIAL IH PRN (00:34)
[2017-10-12] MEDS: NS 1,000 ML IV SCH ×3 (00:40→18:10)
[2017-10-12 04:25] LABS: PLATELET COUNT 162 10^3/uL (150-400)
[2017-10-12] MEDS: FLUTICASONE NASAL 120 SPRAYS/16 GM MDI EACHNARE SCH (08:45)
[2017-10-12] MEDS: ACETAMINOPHEN 325 MG TAB PO PRN ×2 (08:48→15:25)
[2017-10-12] MEDS ORDERED: PANTOPRAZOLE SODIUM 40 MG TAB PO SCH (09:00)
[2017-10-12] MEDS ORDERED: ENOXAPARIN 40 MG/0.4 ML SYR SC SCH (09:00)
[2017-10-12] MEDS ORDERED: MECLIZINE HCL 12.5 MG TAB PO PRN (09:10)
[2017-10-12] MEDS ORDERED: ALBUTEROL 60 PUFFS/8 GM MDI IH PRN (09:10)
[2017-10-12] MEDS: PANTOPRAZOLE SODIUM 40 MG TAB PO SCH (09:38)
[2017-10-12] MEDS ORDERED: AMITRIPTYLINE HCL 50 MG TAB PO ONE (09:39)
[2017-10-12] MEDS ORDERED: ENOXAPARIN 100 MG/ML SYR SC SCH (10:00)
[2017-10-12] MEDS: DOCUSATE SODIUM 100 MG CAP PO PRN (10:05)
--- NOTE | 2017-10-12 10:24 | ECHO ---
[email or web address] [address] [address] Main: [phone] Fax: [email or web address] Echocardiogram Name: SEYMOUR WILEY MR#: [id number] Study Date: 10/12/2017 Study Time: 08:16 AM Date of : 1955 Age: 62 year(s) Height: 188 cm (74 in.) Weight: 94.8 kg (209 lb.) BSA: 2.21 m2 Gender: Male Examination: Echo Indication: Atrial Fibrillation, prostate CA Image Quality: Contrast: Requested by: Catina Denton BP: 101 mmHg/65 mmHg Heart Rate: Rhythm: Indication: Atrial Fibrillation, prostate CA Procedure Staff Pan Shover: Martha Gandhi RDCS Reading Physician: Demarco Velasquez MD Requesting Provider: Conclusions: Normal size left ventricle. Normal global systolic LV function. The ejection fraction is estimated to be 65-70 %. Normal diastolic LV function. Normal RV function. The left atrium is normal in size. The right atrium is normal in size. Moderately dilated aortic root measuring 4.6 cm. Mildly dilated ascending aorta measuring 4.4 cm. Small anterior, organized, pericardial effusion with no evidence of tamponade. . Measurements: Chambers Valvular Assessment AV/MV Valvular Assessment TV/PV Normal Normal Normal Name Value Range Name Value Range Name Value Range Ao Divya (MM): 4.6 cm (2.2 cm-3.7 AV meanP mmHg ( - ) cm) MV E Vmax: 0.59 m/s ( - ) IVSd (2D): 0.8 cm (0.6 cm-1.1 MV A Vmax: 0.42 m/s ( - ) cm) MV E/A: 1.40 ( - ) LVDd (2D): 5.2 cm (4.2 cm-5.9 cm) LVDs (2D): 3.1 cm (2.1 cm-4 cm) LVPWd (2D): 1.1 cm (0.6 cm-1 cm) LVEF (MOD4): 75 % (>=55 %) EF Range: 65-70 % Continued Measurements: Chambers Valvular Assessment AV/MV Patient: SEYMOUR WILEY Study Date: 10/12/2017 Page 1 of 2 08:16 AM Name Value Name Value LADs: 4.0 cm MV E' Septal: 0.07 m/s LADs Lon.0 cm MV E/E' Septal: 7.90 LA Area: 19.9 cm2 MV E/E' Lateral: 8.40 Additional Vessels Name Value Ao Ascendin.4 cm Findings: Left Ventricle: Normal size left ventricle. No LV hypertrophy. Normal global systolic LV function. The ejection fraction is estimated to be 65-70 %. No regional wall motion abnormality. Normal diastolic LV function. Right Ventricle: Normal size right ventricle. Normal RV function. Left Atrium: The left atrium is normal in size. Normal appearing atrial septum. Right Atrium: The right atrium is normal in size. Mitral Valve: The mitral valve is normal in appearance and function. Trivial mitral valve regurgitation. Aortic Valve: The aortic valve is normal in appearance and function. The aortic valve is tri-leaflet. There is no aortic valve regurgitation. Tricuspid Valve: The tricuspid valve is normal in appearance and function. Trivial tricuspid valve regurgitation. Pulmonic Valve: The pulmonic valve is normal in appearance and function. Trivial pulmonic valve regurgitation. Aorta: The aorta is normal. Moderately dilated aortic root measuring 4.6 cm. Mildly dilated ascending aorta measuring 4.4 cm. Pericardium: Small anterior, organized, pericardial effusion with no evidence of tamponade. . (No Signature Object) Patient: SEYMOUR WILEY Study Date: 10/12/2017 Page 2 of 2 08:16 AM [id number]
--- NOTE | 2017-10-12 11:41 | GCON ---
[f rep st] CONSULTATION CARDIOLOGY CONSULTATION DATE OF CONSULTATION: 10/12/2017 REFERRING PHYSICIAN: Catina Denton MD REASON FOR CONSULTATION: New onset of atrial fibrillation. HISTORY OF PRESENT ILLNESS: The patient is a pleasant 62-year-old gentleman with a past medical hist ory notable for metastatic prostate cancer with metastatic disease to the lymph nodes, GERD, Quevedo' s esophagus, history of upper GI bleeding, hiatal hernia, chronic vertigo, who has been having compla ints of increasing abdominal pain, constipation, bloating, and loss of appetite over the last several months. He states that his symptoms have become increasingly more bothersome over the last week. H e states that last evening he was walking back from [employer], drinking a Powerade, when he began to feel a rapid irregular heartbeat. He states this was associated with some mild lightheadedness wi th no associated near-syncope or syncope. He denies any associated chest pain, chest pressure, short ness or dyspnea. He has no previous history of atrial fibrillation. In the setting of ongoing sympt oms, he presented to [facility] for further evaluation. ECG on admission demonstrate d atrial fibrillation with rapid ventricular response at a rate of 132 beats per minute, with nonspec ific T-wave changes in the lateral leads. He was admitted to [facility], to the hospitalist service. He was started on diltiazem drip. He spontan eously converted to sinus rhythm this morning. The patient denies any previous history of atrial fibrillation. He has no known history of coronary artery disease. He denies any history of hypertension, diabetes, congestive heart failure, or vascul ar disease. CHADS-VASc score of 0. Currently, at the time of my exam, he is resting comfortably without complaint. PAST MEDICAL HISTORY: As outlined above in HPI. SOCIAL HISTORY: He is a lifelong nonsmoker. He does not use marijuana. He lives alone. He has nev er been . He has no children. He has a brother who lives in [place]. He rarely drinks alcoho l. FAMILY HISTORY: Notable for melanoma. MEDICATIONS: On admissioninclude magnesium oxide 400 mg daily, Flonase nasal spray daily, albuterol inhaler 1-2 puffs p.r.n., Colace 100 mg b.i.d. p.r.n., Valium 5 mg p.o. t.i.d. p.r.n., B12 1000 mcg d aily, Tylenol t.i.d. p.r.n., Zytiga 1000 mg p.o. h.s., Protonix 40 mg daily, meclizine 12.5 mg p.o. b .i.d. p.r.n., prednisone 5 mg p.o. b.i.d. He is also on selenium, psyllium husk, B12 vitamins, and h erbal supplements. ALLERGIES: Allergies to medication include NSAIDs due to GI irritation. PHYSICAL EXAMINATION: VITAL SIGNS: Blood pressure 101/65, heart rate 58, in sinus rhythm, oxygen sa turation 97% on room air, temperature 36.7. GENERAL: He is awake, alert, oriented, appropriate, in no apparent distress. NECK: There is no evidence of JVP or carotid bruits. LUNGS: Clear to auscul tation bilaterally. CARDIAC: S1, S2. Regular rate and rhythm. No murmurs, rubs, or gallops. PMI is not displaced. ABDOMEN: Soft, nontender, nondistended. There is no pulsatile mass or abdominal bruit. He has no evidence of cyanosis, clubbing or edema. DATA: Initial ECG demonstrates atrial fibrillation with rapid ventricular response, with lateral non specific ST-T wave changes. Complete 2D echocardiogram demonstrates normal left ventricular function with LVEF of 65% to 70%. No rmal atrial dimensions. Normal right ventricular function. No significant valvular abnormalities. He has a small organized pericardial effusion, which appears old. No evidence of tamponade physiolog y. LABORATORY DATA: White blood cell count 6.7, hemoglobin 13.6, hematocrit 39.1, platelet count 162. Sodium 139, potassium 3.7, chloride 111, bicarb 22, BUN 6, creatinine 0.6, glucose 105, magnesium 2.1 , AST 19, ALT 24, alkaline phosphatase 47, N-terminal proBNP 181. TSH 2.97. Telemetry demonstrated atrial fibrillation with RVR, with now return to sinus rhythm, primarily in th e 60s. IMPRESSION: The patient is a pleasant 62-year-old gentleman with new onset symptomatic paroxysmal at rial fibrillation, with no known previous history of atrial fibrillation. He has no history of coron peg disease, hypertension, diabetes, peripheral vascular disease, or prior history of transient ische yaya attack or cerebrovascular accident. He has no known history of obstructive sleep apnea. New ons et of atrial fibrillation is most likely triggered by side effects from his Zytiga, including abdomin al pain, bloating, fullness and constipation. He is followed by Dr. Mata, who states he has instruc tre him to discontinue the Zytiga at this time. He will consult on the patient later today. CHADS-VASc score of 0. In the history of GI bleeding and gastritis, would not use aspirin. Would co nsider Plavix as an alternative. Would not initiate anticoagulation with a CHADS-VASc score of 0. In the setting of new-onset atrial fibrillation, would recommend the followin. Outpatient exercise nuclear stress test. 2. Overnight oximetry. 3. Recommend initiating low-dose metoprolol and follow up in outpatient clinic. We will continue to follow along with the patient's care throughout the course of his hospitalization. /[id number]/MODL
--- NOTE | 2017-10-12 11:46 | PDMN ---
Medical Necessity Medical necessity: est los>2mn for afib w/RVR with continued elevated HR, significant dehydration, ,orthostatic symptoms, abd discomfort w/constipation, and palpitations; requires dilt gtt, IVF, cardiac consult, and bowel regimen; comorbid metastatic prostate cancer, GERD/Luigi's, chronic back pain w/DJD, and anemia; per order and H&P 10/11/17
--- NOTE | 2017-10-12 13:19 | ASMTCMCOM ---
CM Note CM Note Notes: Patient admitted for new-onset A-fib. He also has a hx of metastatic prostate cancer and is seen by Dr Mata. Patient will be seen by oncology and cardiology while here. PT/OT have also been ordered. Case Management will follow for discharge planning. Date Signed: 10/12/2017 01:19 PM Electronically Signed By:Wilda Do RN
--- NOTE | 2017-10-12 15:04 | HOSPPROG ---
Hospitalist Progress Note Assessment/Plan: 62 yo M with PMH of metastatic prostate cancer presenting with a fib w/rvr as well as issues with constipation/diarrhea/abd spasm # a fib w/rvr: started on dilt gtt and lovenox but now converted to SR, chads vasc of 0 so no indication for AC or even asa, discussed with cardiology who will start low dose metop and ok for op f/u otherwise. Echo obtained and no significant abnormalities # Abdominal discomfort and palpitations - CTA imaging of the abdomen negative for any evidence of aortic aneurysm. Patient does report that he has had significant constipation despite use of stool softeners and laxatives at home he has had 1 bowel movement several days ago but again is quite dehydrated. Will continue with bowel regimen. He had some concern that this was due to his prostate meds of zytiga and prednisone which he has held for the last 2 days. #Constipation-as above #Metastatic prostate cancer-with concerns about his meds which he has been holdig for the last 2 days, have asked for oncology to consult #GERD/Quevedo's esophagus-continue Protonix. #Chronic back pain with degenerative disc disease L4-5 - supportive care. K- pad Lidoderm patch p.r.n.. # anemia - patient with history intermittent anemia this is mild. Likely anemia chronic disease wo e/o acute bleed, monitoring # IP status, will need > 48 hours stay Patient new to my care. Care plan reviewed with oncology. Subjective: no significant overnight events, patient is currently still having some abd discomfort Objective: Vital Signs Temp Pulse Resp BP Pulse Ox 36.7 C 64 12 110/71 97 10/12/17 07:21 10/12/17 11:31 10/12/17 11:31 10/12/17 11:31 10/12/17 11:31 Laboratory Results 10/12/17 03:40 10/12/17 03:40 10/11/17 10/12/17 10/13/17 05:59 05:59 05:59 Intake Total 2145 7.5 Output Total 1575 Balance 570 7.5 PT 13.6 SEC (12.0-15.0) 10/11/17 21:46 INR 1.02 (0.83-1.16) 10/11/17 21:46 awake alert anicteric op clear rrr no mrg ctab soft nt nd no cce warm dry well perfused oriented appropriate ICD10 Worksheet Patient Problems: Problems Problem Status Onset Atrial fibrillation Acute Abdominal pain Acute Ataxia Acute Back pain Acute Chest discomfort Acute Febrile neutropenia Acute 03/30/14 Hyperbilirubinemia Acute Near syncope Acute Prostate cancer Acute 08/21/13 Sinusitis Acute
--- NOTE | 2017-10-12 15:43 | GCON ---
[f rep st] CONSULTATION The patient is a 62-year-old male who is a patient of my partner, Dr. 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 To review, the patient was diagnosed in August of 2013 with metastatic prostate cancer and widespread lymph node involvement.. He received Lupron with Casodex and docetaxel for a period of time, and then because of recurrence, he was restarted on leuprolide plus abiraterone plus prednisone in January of 2017. He was lost to followup for about 7 months and recently returned to clinic. He has been having increasing difficulties with constipation, which leads to nausea and having some increasing problems with migraine headaches. He was restarted back on Lupron. His PSA as of a couple weeks ago was 24, down from 165 in February of 2017. A recent CT scan showed some improvement in mediastinal and pelvic adenopathy. He had a negative bone scan as of fall. He was admitted to [facility] last month with fairly similar complaints. He was given IV fluids and PPIs and returned to baseline. He did apparently have an EGD in the fall because of a GI bleed,and was told that he may have toxicity from nonsteroidal anti-inflammatories, and he has been avoiding those. He tells me he has been on a fairly regular bowel regimen. Over the last week or 2, his constipation and headaches had returned. He was instructed to stop his abiraterone and prednisone. However, his symptoms persisted, and he presented to [facility] last night and was admitted. Of note, prior to admission, he had noted some palpitations, and in the emergency room, he was found to be in atrial fibrillation. Cardiology consultation notes that after diltiazem, he converted to a normal sinus rhythm. He is feeling somewhat better today. Last admission, he had an MRI study of the brain that was unremarkable. PAST MEDICAL HISTORY: Significant for GERD, Quevedo esophagus, history of upper GI bleed, chronic vertigo, DJD, chronic sinusitis, chronic tinnitus. PAST SURGICAL HISTORY: Includes left elbow surgery. FAMILY HISTORY: Melanoma. He is a nonsmoker. He lives alone. REVIEW OF SYSTEMS: Negative, except as discussed above. PHYSICAL EXAM: GENERAL: He is an alert, conversant male, in no acute distress. VITAL SIGNS: Blood pressure 110/71, pulse 64. He is not icteric. LYPHATIC: I detect no cervical or supraclavicular adenopathy. LUNGS: Clear to auscultation and percussion. CARDIAC: Unremarkable. ABDOMEN: He complains of some tenderness, but there is no rebound. Bowel sounds are normal. EXTREMITIES: No edema. NEUROLOGIC: Nonfocal. LABORATORY DATA: White count 6000, hemoglobin 13.6, hematocrit 39, platelets 162,000. Chem panel shows an albumin of 3. I do note that he has lost some weight. He had a CT scan of the abdomen and pelvis performed 10/11, which again showed metastatic inguinal and iliac adenopathy with possible minimal improvement compared to September. IMPRESSION: Patient has not been feeling well. Clearly, part of this was the recent onset of atrial fibrillation. He has longer-standing issues with constipation, which causes nausea. The etiology of this is a bit unclear. It has been present for the last couple months. It is felt to possibly be related to abiraterone, and this has been discontinued, along with the prednisone that he takes with that. I think it would be reasonable to observe him and possibly discharge him on an increased bowel regimen. Lactulose might be a consideration. His prostate cancer seems to be under good control at this point in time. Our service will follow with you. /[id number]/MODL MTDD
[2017-10-12] MEDS ORDERED: D50W 25 GM/50 ML SYR IVP PRN (17:14)
[2017-10-12] MEDS ORDERED: INSULIN PUMP, PATIENT OWN 1 EA MISC SCH (17:15)
[2017-10-12] MEDS: PSYLLIUM METAMUCIL 1 PKT PO SCH (17:18)
[2017-10-12] MEDS ORDERED: PREDNISONE 5 MG PO SCH (18:00)
[2017-10-12] MEDS ORDERED: Abiraterone Acetate [Zytiga] 1,000 MG PO SCH (21:00)
[2017-10-12] MEDS: METOPROLOL TARTRATE 25 MG TAB PO SCH (23:02)
[2017-10-13] MEDS: METOPROLOL TARTRATE 25 MG TAB PO SCH ×2 (08:16→20:24)
[2017-10-13] MEDS: PSYLLIUM METAMUCIL 1 PKT PO SCH (08:16)
[2017-10-13] MEDS: VITAMIN B COMPLEX 1 EA CAP/TAB PO SCH (08:17)
[2017-10-13] MEDS: PANTOPRAZOLE SODIUM 40 MG TAB PO SCH (08:17)
[2017-10-13] MEDS: SELENIUM 0.2 MG TAB PO SCH (08:17)
[2017-10-13] MEDS: CYANO/VITAMIN B12 1000 MCG TAB PO SCH (08:17)
[2017-10-13] MEDS: MAGNESIUM OXIDE 400 MG TAB PO SCH (08:17)
[2017-10-13] MEDS: FLUTICASONE NASAL 120 SPRAYS/16 GM MDI EACHNARE SCH (08:20)
[2017-10-13] MEDS: DOCUSATE SODIUM 100 MG CAP PO PRN (08:31)
[2017-10-13] MEDS: ACETAMINOPHEN 325 MG TAB PO PRN (08:31)
[2017-10-13] MEDS ORDERED: FLUTICASONE NASAL 120 SPRAYS/16 GM MDI EACHNARE SCH (09:00)
[2017-10-13] MEDS: DIAZEPAM 5 MG TAB PO PRN (09:21)
[2017-10-13] MEDS ORDERED: POLYETHYLENE GLYCOL 3350 17 GM PKT PO PRN (09:37)
[2017-10-13] MEDS ORDERED: LACTULOSE 20 GM/30 ML UDCUP PO PRN (09:37)
[2017-10-13] MEDS ORDERED: MAGNESIUM HYDROXIDE 30 ML UDCUP PO PRN (09:37)
[2017-10-13] MEDS ORDERED: BISACODYL 10 MG SUPP PR PRN (09:37)
--- NOTE | 2017-10-13 09:51 | PDCARPN ---
Cardiology Progress Note Assessment/Plan: Assessment: 1. New onset Kassidy b with RVR. CHADS VASC of 0. Plan: -Continue Metoprolol Tartrate 12.5 mg po bid -arrange for out patient Lexiscan nuclear stress -arrange for overnight oximetry -will arrange for 2 week preventice heart monitor -follow up with me after testing. 10/13/17 09:51 Subjective: MR. Garay is feeling well. No new Afib. Remains in NSR. Vital signs stable. Pt admitted wiht new onset Afib with RVR. Echo was unremarkable. CHADS VASC of 0. Hx of UGI bleeding and gastritis. Low plts in the 100's. Reviewed/Discussed With: hospitalist Objective: Vital Signs (8 Hrs) Temp Pulse Resp BP Pulse Ox 10/13/17 08:16 62 125/77 H 10/13/17 07:05 36.3 C 60 13 125/77 H 95 10/13/17 04:00 36.7 C 69 16 104/76 93 Intake/Output (24 Hrs) 10/12/17 10/13/17 10/14/17 05:59 05:59 05:59 Intake Total 2145 2827.5 Output Total 1575 2350 Balance 570 477.5 Intake: Oral (ml) 570 500 IV Infused (ml) 1575 2327.5 Diltiazem HCl/D5w 125 ml 25 7.5 @ Per Protocol IV CONT KLEBER Rx#:[id number] Ns 1,000 ml @ 100 mls/hr 550 2320 IV CONT KLEBER Rx#: [id number] Output: Urine (ml) 1575 2350 Urinal 775 2350 Other: Weight 95 kg 95.9 kg Intake Quantity Yes Sufficient Number of Voids Urinal 2 Result Diagrams: 10/12/17 03:40 10/12/17 03:40 - Physical Exam Neurologic: AAOx3, CN II-XII grossly intact Psychiatric: cooperative ICD10 Worksheet Patient Problems: Problems Problem Status Onset Atrial fibrillation Acute Abdominal pain Acute Ataxia Acute Back pain Acute Chest discomfort Acute Febrile neutropenia Acute 03/30/14 Hyperbilirubinemia Acute Near syncope Acute Prostate cancer Acute 08/21/13 Sinusitis Acute
[2017-10-13] MEDS: NS 1,000 ML IV SCH (12:42)
[2017-10-13] MEDS ORDERED: MAGNESIUM CITRATE 300 ML BOTTLE PO ONE (13:38)
--- NOTE | 2017-10-13 14:01 | HOSPPROG ---
Hospitalist Progress Note Assessment/Plan: 62 yo M with PMH of metastatic prostate cancer presenting with a fib w/rvr as well as issues with constipation/diarrhea/abd spasm # a fib w/rvr: converted post dilt gtt, now with sinus chiki on metop 12.5 bid, but tolerating well. Chads vasc of 0, no AC indicated. Echo obtained and no significant abnormalities. Will f/u with cardiology after dc. # Abdominal pain/constipation - CTA imaging of the abdomen negative. He had some concern that this was due to his prostate meds of zytiga and prednisone which we will continue to hold. Appreciate oncology consult, sxs have been present x 2 months without clear etiology. Constipation continues, no BM x 5 days, continue bowel protocol, will add mag citrate. #Metastatic prostate cancer-as above, holding zytiga #GERD/Quevedo's esophagus-continue Protonix. #Chronic back pain with degenerative disc disease L4-5 - supportive care. K- pad Lidoderm patch p.r.n.. # anemia - patient with history intermittent anemia this is mild. Likely anemia chronic disease wo e/o acute bleed, monitoring # IP status, will need > 48 hours stay Patient new to my care. Care plan reviewed with cardiology Subjective: no significant overnight events, patient reports continued abdominal discomfort that he describes as spasms and still no bm x 5 days Objective: Vital Signs Temp Pulse Resp BP Pulse Ox 36.6 C 47 L 18 110/69 98 10/13/17 12:00 10/13/17 12:00 10/13/17 12:00 10/13/17 12:00 10/13/17 12:00 Laboratory Results 10/12/17 03:40 10/12/17 03:40 10/12/17 10/13/17 10/14/17 05:59 05:59 05:59 Intake Total 2145 2827.5 600 Output Total 1575 2350 1500 Balance 570 477.5 -900 PT 13.6 SEC (12.0-15.0) 10/11/17 21:46 INR 1.02 (0.83-1.16) 10/11/17 21:46 awake alert anicteric op clear rrr no mrg ctab soft nt nd no cce warm dry well perfused oriented appropriate ICD10 Worksheet Patient Problems: Problems Problem Status Onset Atrial fibrillation Acute Abdominal pain Acute Ataxia Acute Back pain Acute Chest discomfort Acute Febrile neutropenia Acute 03/30/14 Hyperbilirubinemia Acute Near syncope Acute Prostate cancer Acute 08/21/13 Sinusitis Acute
--- NOTE | 2017-10-13 14:17 | SOAPPROG ---
SOAP Progress Note Assessment/Plan: Assessment: 1. Prostate cancer 2. Afib, resolved 3. Abdominal pain, constipation, no BM for 5 days Plan:Adding Mg citrate, continue to hold Zytiga 10/13/17 14:14 Subjective: some cramping post drinking tea, overall feels better Objective: Vital Signs Temp Pulse Resp BP Pulse Ox 98 F 47 L 18 110/69 98 10/13/17 12:00 10/13/17 12:00 10/13/17 12:00 10/13/17 12:00 10/13/17 12:00 Laboratory Results 10/12/17 03:40 10/12/17 03:40 10/12/17 10/13/17 10/14/17 05:59 05:59 05:59 Intake Total 2145 2827.5 600 Output Total 1575 2350 1500 Balance 570 477.5 -900 PT 13.6 SEC (12.0-15.0) 10/11/17 21:46 INR 1.02 (0.83-1.16) 10/11/17 21:46 Physical Exam - Physical Exam General Appearance: alert, no apparent distress Respiratory: normal breath sounds Cardiac/Chest: regular rate, rhythm Abdomen: normal bowel sounds, non-tender ICD10 Worksheet Patient Problems: Problems Problem Status Onset Atrial fibrillation Acute Abdominal pain Acute Ataxia Acute Back pain Acute Chest discomfort Acute Febrile neutropenia Acute 03/30/14 Hyperbilirubinemia Acute Near syncope Acute Prostate cancer Acute 08/21/13 Sinusitis Acute
[2017-10-13] MEDS: SENNOSIDES/DOCUSATE SODIUM TAB PO SCH (20:25)
[2017-10-14] MEDS: CYANO/VITAMIN B12 1000 MCG TAB PO SCH (10:19)
[2017-10-14] MEDS: PANTOPRAZOLE SODIUM 40 MG TAB PO SCH (10:19)
[2017-10-14] MEDS: MAGNESIUM OXIDE 400 MG TAB PO SCH (10:19)
[2017-10-14] MEDS: SELENIUM 0.2 MG TAB PO SCH (10:19)
[2017-10-14] MEDS: METOPROLOL TARTRATE 25 MG TAB PO SCH ×2 (10:20→20:30)
[2017-10-14] MEDS: SENNOSIDES/DOCUSATE SODIUM TAB PO SCH ×2 (10:20→20:32)
[2017-10-14] MEDS: VITAMIN B COMPLEX 1 EA CAP/TAB PO SCH (10:20)
[2017-10-14] MEDS: PSYLLIUM METAMUCIL 1 PKT PO SCH (10:20)
[2017-10-14] MEDS: FLUTICASONE NASAL 120 SPRAYS/16 GM MDI EACHNARE SCH (10:23)
[2017-10-14] MEDS: ACETAMINOPHEN 325 MG TAB PO PRN ×2 (10:26→18:47)
[2017-10-14] MEDS ORDERED: POTASSIUM Cl (KCl) 100 ML IV SCH (11:00)
[2017-10-14] MEDS ORDERED: POTASSIUM CL 10 MEQ TAB PO ONE (11:30)
--- NOTE | 2017-10-14 11:59 | HOSPPROG ---
Hospitalist Progress Note Assessment/Plan: #Diarrhea: from mag citrate #Hypokalemia: repleting #Atrial fibrillation with RVR: NSR now.CHADS 0. BB. No AC indicated -outpatient Lexiscan #Abdominal pain: CT unremarkable. Constipation likely cause #Metastatic prostate cancer: #GERD: PPI #Chronic back pain #Normocytic anemia: H/H stable #Diet: regular #DVT ppx: SCD #Disp: cont inpatient admission for hydration, electrolyte repletion Subjective: up all night with diarrhea after mag citrate Objective: Vital Signs Temp Pulse Resp BP Pulse Ox 36.3 C 84 14 121/76 H 95 10/14/17 07:26 10/14/17 10:49 10/14/17 10:49 10/14/17 07:26 10/14/17 10:49 Laboratory Results 10/14/17 03:28 10/14/17 03:28 10/13/17 10/14/17 10/15/17 05:59 05:59 05:59 Intake Total 2827.5 3325 550 Output Total 2350 2250 200 Balance 477.5 1075 350 PT 13.6 SEC (12.0-15.0) 10/11/17 21:46 INR 1.02 (0.83-1.16) 10/11/17 21:46 - Time Spent With Patient Time Spent with Patient: greater than 25 minutes Time Spent with Patient: Greater than 25 minutes spent on this patients care, greater than 50% of time spent counseling, educating, and coordinating care regarding the above mentioned plan. - Physical Exam Constitutional: no apparent distress Eyes: PERRL Ears, Nose, Mouth, Throat: moist mucous membranes Cardiovascular: regular rate and rhythym, edema (LEs ) Respiratory: no respiratory distress Gastrointestinal: normoactive bowel sounds Genitourinary: no bladder fullness Skin: warm Musculoskeletal: full muscle strength Neurologic: AAOx3, CN II-XII Intact Psychiatric: interacting appropriately ICD10 Worksheet Patient Problems: Problems Problem Status Onset Febrile neutropenia Acute 03/30/14 Prostate cancer Acute 08/21/13 Sinusitis Acute Ataxia Acute Near syncope Acute Back pain Acute Abdominal pain Acute Chest discomfort Acute Hyperbilirubinemia Acute Atrial fibrillation Acute
[2017-10-14] MEDS: DIAZEPAM 5 MG TAB PO PRN (12:07)
[2017-10-14] MEDS ORDERED: POTASSIUM CL 10 MEQ TAB ONE (18:48)
[2017-10-15] MEDS: CYANO/VITAMIN B12 1000 MCG TAB PO SCH (08:18)
[2017-10-15] MEDS: FLUTICASONE NASAL 120 SPRAYS/16 GM MDI EACHNARE SCH (08:18)
[2017-10-15] MEDS: PANTOPRAZOLE SODIUM 40 MG TAB PO SCH (08:18)
[2017-10-15] MEDS: SELENIUM 0.2 MG TAB PO SCH (08:18)
[2017-10-15] MEDS: VITAMIN B COMPLEX 1 EA CAP/TAB PO SCH (08:18)
[2017-10-15 08:21] VITALS: BP 128/83
[2017-10-15] MEDS: SENNOSIDES/DOCUSATE SODIUM TAB PO SCH (08:23)
[2017-10-15] MEDS: METOPROLOL TARTRATE 25 MG TAB PO SCH (08:23)
[2017-10-15] MEDS: PSYLLIUM METAMUCIL 1 PKT PO SCH (08:23)
[2017-10-15] MEDS: ACETAMINOPHEN 325 MG TAB PO PRN (09:30)
[2017-10-15] MEDS ORDERED: POTASSIUM CL 20 MEQ TAB PO ONE (09:40)
--- NOTE | 2017-10-15 11:29 | ASDISCHSUM ---
Discharge Information Plan Status:Home with Home Health Medically Cleared to Leave:10/15/2017 Discharge Date:10/15/2017 12:47 PM D/C Disposition:Home Health Service [facility] D/C Disposition:Home, Routine, Self-Care Projected Discharge Date:10/15/2017 11:00 AM Transportation at D/C: Discharge Delay Reason: Follow-Up Date:10/15/2017 11:00 AM Discharge Slot: Final Diagnosis: Placement Information Referral Type:*Home Health Care Services Referral ID:[id number] [facility] [address] [place] [address] Address 2: City:[place] Selection Factors: State:[place] Patient Contact Information Contact Name:MARK Relationship: Address: Work Phone: City: [facility] Phone: [facility] Code: Email: Financial Information Financial Class:Medicaid Primary Plan Desc:[place] [facility] [place] Primary Plan Number:[id number] Secondary Plan Desc: Secondary Plan Number: Assessment Information LACE LACE Length of stay for Answers: 3 days current admission Acuity / Level of Answers: Yes Care: Did the patient have an inpatient admission? Comorbidities - select Answers: Any tumor (including all that apply lymphoma or leukemia) Other Notes: GERD; Degenerative disc disease # of Emergency department Answers: 1-2 visits in the last 6 months Score: 10 Date Signed: 10/15/2017 11:33 AM Electronically Signed By:Haley Hale RN [facility] CM Progress Note CM Note CM Note Notes: Patient admitted for new-onset A-fib. He also has a hx of metastatic prostate cancer and is seen by Dr Mata. Patient will be seen by oncology and cardiology while here. PT/OT have also been ordered. Case Management will follow for discharge planning. Date Signed: 10/12/2017 01:19 PM Electronically Signed By:Wilda Do RN [facility] CM Progress Note CM Note CM Note Notes: Chart reviewed. Patient medically cleared for discharge to home. Per PT [facility] recommended. Call to July in [facility] left message requesting [facility] PT, CM available should other needs arise. Plan: Home with [facility]. Date Signed: 10/15/2017 11:32 AM Electronically Signed By:Haley Hale RN Intervention Information
--- NOTE | 2017-10-15 11:33 | ASMTLACE ---
LACE Length of stay for Answers: 3 days current admission Acuity / Level of Answers: Yes Care: Did the patient have an inpatient admission? Comorbidities - select Answers: Any tumor (including all that apply lymphoma or leukemia) Other Notes: GERD; Degenerative disc disease # of Emergency department Answers: 1-2 visits in the last 6 months Score: 10 Date Signed: 10/15/2017 11:33 AM Electronically Signed By:Haley Hale RN
--- NOTE | 2017-10-15 11:33 | ASMTCMCOM ---
CM Note CM Note Notes: Chart reviewed. Patient medically cleared for discharge to home. Per PT [facility] recommended. Call to July in [facility] left message requesting [facility] PT, CM available should other needs arise. Plan: Home with [facility]. Date Signed: 10/15/2017 11:32 AM Electronically Signed By:Haley Hale RN
--- NOTE | 2017-10-15 11:39 | PDIAF ---
- Diagnosis Diagnosis: nausea Code Status: Full Code - Medication Management Discharge Medications: Medications to Continue on Transfer Herbals/Supplements -Info Only 1 ea PO DAILY 01/12/17 [Last Taken Unknown] Meclizine HCl [Meclizine HCl 12.5 mg (*)] 25 mg PO BID PRN 01/12/17 [Last Taken 10/10/17] Diazepam [Valium 5 MG (*)] 5 mg PO TID PRN #15 tab 01/18/17 [Last Taken 10/09/17 ] Abiraterone Acetate [Zytiga] 1,000 mg PO HS 09/15/17 [Last Taken 10/09/17] Acetaminophen [Tylenol ES 500 mg (*)] 500 - 1,000 mg PO TID PRN 09/15/17 [Last Taken 10/11/17] Docusate Sodium [Colace 100 MG (*)] 100 mg PO BID PRN 09/15/17 [Last Taken 09/13] predniSONE [Prednisone] 5 mg PO BIDMEAL 09/15/17 [Last Taken 10/09/17] Pantoprazole Sodium [Protonix] 40 mg PO DAILY #30 tablet. 09/17/17 [Last Taken 10/11/17] Albuterol [Proventil Inhaler HFA (*)] 1 - 2 puffs IH DAILY PRN 10/12/17 [Last Taken Unknown] Cyanocobalamin [Vitamin B12 (*)] 1,000 mcg PO DAILY 10/12/17 [Last Taken ] Fluticasone Nasal [Flonase Nasal [place]] 1 sprays NASAL DAILY 10/12/17 [Last Taken 10/11/17] Magnesium Oxide [Magnesium Oxide 400 mg (*)] 400 mg PO DAILY 10/12/17 [Last Taken 10/11/17] Psyllium Husk (with Sugar) [Metamucil Packet] 1 each PO DAILY 10/12/17 [Last Taken 10/11/17] Selenium [Selenium 200mcg (*)] 200 mcg PO DAILY 10/12/17 [Last Taken 10/11/17] Vitamin B Complex [Vitamin B Complex (OTC)] 1 each PO DAILY 10/12/17 [Last Taken 10/11/17] Metoprolol Tartrate [Lopressor 25 mg (*)] 12.5 mg PO BID #30 tab 10/15/17 [Last Taken Unknown] Discharge Medications: Refer to the Discharge Home Medication list for PRN reason. - Orders Services needed: Home Care, Physical Therapy Home Care Face to Face: I certify that this patient was under my care and that I had the required [id number] encounter meeting the encounter requirements on the discharge day. My findings support the fact that the patient is homebound as defined in Home Care Face to Face Continued: CMS Chapter 7 Medicare Benefits Manual 30.1.1 , The condition of the patient is such that there exists a normal inability to leave home and consequently, leaving home would require a considerable and taxing effort. Isolation Type: Chemotherapy Isolation Diet Recommendation: no restrictions on diet Diet Texture: Regular Texture Diet - Follow Up Care Current Providers and Referrals: Kristen Mata MD [Primary Care Provider] - As per Instructions Demarco Velasquez MD [Medical Doctor] - (Heart monitor Lexiscan stress test)
--- NOTE | 2017-10-15 13:36 | GDS ---
[f rep st] DISCHARGE SUMMARY DISCHARGE DIAGNOSES: 1. Nausea, vomiting. 2. Abdominal pain. 3. Hypokalemia. 4. Metastatic prostate cancer. 5. Atrial fibrillation with rapid ventricular response. 6. Gastroesophageal reflux disease with Quevedo's esophagus. 7. Chronic back pain. 8. Normocytic anemia. CONSULTATIONS: Oncology, Cardiology. PROCEDURES: None. HISTORY OF PRESENT ILLNESS: A 62-year-old male with metastatic prostate cancer , GERD with Quevedo's esophagus please add both post discharge diagnoses presents to the ER with 1 week of palpitations, abdominal discomfort. He has noticed increased constipation and flushing felt secondary to his Lupron and Zytiga. He was advised by Dr. Mata to hold his prednisone and Zytiga for the last 3 days. Denies fevers or chills. No chest pain or shortness of breath. No dizziness. Last BM was 4 days prior to admission home. He took some MiraLAX and developed a few episodes of diarrhea. CT abdomen in the ER did not show obstruction or abscess. HOSPITAL COURSE: 1. Abdominal pain: Now resolved, likely secondary to constipation. 2. Diarrhea: He was dosed Mag citrate and had persistent diarrhea that night. This has resolved. 3. Hypokalemia, secondary to diarrhea: This has been repleted. 4. Atrial fibrillation with RVR, now in normal sinus rhythm on metoprolol 12.5 twice daily. He will follow up with Dr. Velasquez in clinic for Holter monitor and Lexiscan test. Echo showed normal LV function with an EF of 65%, normal atrium. Had moderately dilated aortic root 4.6, ascending aortic 4.4. 5. Dilated ascending aorta/aortic root: He will need an annual ultrasound. 6. GERD/Quevedo's esophagus. PPI. 7. Chronic back pain. Home medications. 8. Nausea, vomiting, now resolved. Has Zofran at home. 9. Normocytic anemia. H and H is stable. DISPOSITION: Patient is stable for home today with physical therapy. FOLLOWUP: 1. Dr. Mata. 2. Primary care physician. 3. Dr. Velasquez, cardiology for Holter monitor and Lexiscan stress test. NEW MEDICATIONS: Metoprolol 12.5 twice daily. PHYSICAL EXAMINATION: VITAL SIGNS: Today: Temperature 36.6, blood pressure 128/83, heart rate in the 60s, respirations 16, 92% on room air. GENERAL: Well -appearing, sitting up, more color to his face. HEENT: Moist mucous membranes. CV: Regular rate and rhythm. LUNGS: Clear. ABDOMEN: Soft, nontender, nondistended. Positive bowel sounds. : No Padilla. MUSCULOSKELETAL: 5/5 upper and lower extremity strength. NEUROLOGIC: 2 through 12 intact. /[id number]/MODL MTDD
== END 2017-10-15 12:47 | disposition home or self-care (01) | DRG 201 ==
LOC: F2W 23:59
PROVIDERS: ADMIT Family Medicine; ATTEND Family Medicine
DX: I48.0 Paroxysmal atrial fibrillation (principal); C79.82 Secondary malignant neoplasm of genital organs; E86.0 Dehydration; K59.00 Constipation, unspecified; K21.9 Gastro-esophageal reflux disease without esophagitis; K22.70 Barrett's esophagus without dysplasia; G89.29 Other chronic pain; D64.9 Anemia, unspecified; R19.7 Diarrhea, unspecified; E87.6 Hypokalemia; I77.810 Thoracic aortic ectasia; M51.36 Other intervertebral disc degeneration, lumbar region
CPT/HCPCS: 96374; 97112-GP; 97116-GP; 97162-GP; 97165-GO; G8987-GO-CI; G8988-GO-CI; G8989-GO-CI; J1650; J2270; Q9967

== ENCOUNTER 2018-01-17 15:17 | Emergency (ER) | payer MEDICAID ==
--- NOTE | 2018-01-17 16:06 | EDPHY ---
H & P Smoking Status: Never smoked Time Seen by Provider: 01/17/18 15:38 HPI/ROS: CHIEF COMPLAINT: "I think the cyst is infected" HISTORY OF PRESENT ILLNESS: 62-year-old male history of prostate cancer, history of all sebaceous cyst or lipoma on back complaining of 4 days of erythema, pain to his right medial scapular lipoma or sebaceous cyst with foul- smelling drainage. No trauma to this area. No fever or chills. No flu-like symptoms. No chest pain. No dyspnea. No abdominal pain. PHYSICAL EXAM (Prior to examination, patient consented to physical exam, hands were washed and my usual and customary physical exam procedures followed) 1) GENERAL: Well-developed, well-nourished, alert and oriented. Appears to be in no acute distress. 2) HEAD: Normocephalic 3) HEENT: sclera anicteric 4) LUNGS: Breathing comfortably. Clear bilaterally. Equal breath sounds bilaterally. 5) SKIN: Right medial scapular region 3 cm x 3 cm draining erythematous tender fluctuant lesion. No crepitus. (Teofilo,Lyndsay Gaines) Constitutional: Initial Vital Signs Temperature (C) 36.7 C 01/17/18 15:25 Heart Rate 77 01/17/18 15:25 Respiratory Rate 18 01/17/18 15:25 Blood Pressure 166/100 H 01/17/18 15:25 O2 Sat (%) 98 01/17/18 15:25 O2 Delivery Mode Room Air Allergies/Adverse Reactions: NSAIDS (Non-Steroidal Anti-Inflamma [NSAIDS (Non-Steroidal Anti-Inflammatory Drug)] Allergy (Unknown, Unverified 10/16/17 10:18) GI irritation Home Medications: Medication Instructions Recorded Herbals/Supplements -Info Only 1 ea PO DAILY 01/12/17 Meclizine HCl [Meclizine HCl 12.5 25 mg PO BID PRN 01/12/17 mg (*)] Diazepam [Valium 5 MG (*)] 5 mg PO TID PRN #15 tab 01/18/17 Abiraterone Acetate [Zytiga] 1,000 mg PO HS 09/15/17 Acetaminophen [Tylenol ES 500 mg 500 - 1,000 mg PO TID PRN 09/15/17 (*)] Docusate Sodium [Colace 100 MG (*)] 100 mg PO BID PRN 09/15/17 predniSONE [Prednisone] 5 mg PO BIDMEAL 09/15/17 Pantoprazole Sodium [Protonix] 40 mg PO DAILY #30 tablet. 09/17/17 Albuterol [Proventil Inhaler HFA 1 - 2 puffs IH DAILY PRN 10/12/17 (*)] Cyanocobalamin [Vitamin B12 (*)] 1,000 mcg PO DAILY 10/12/17 Fluticasone Nasal [Flonase Nasal 1 sprays NASAL DAILY 10/12/17 [place]] Magnesium Oxide [Magnesium Oxide 400 mg PO DAILY 10/12/17 400 mg (*)] Psyllium Husk (with Sugar) 1 each PO DAILY 10/12/17 [Metamucil Packet] Selenium [Selenium 200mcg (*)] 200 mcg PO DAILY 10/12/17 Vitamin B Complex [Vitamin B 1 each PO DAILY 10/12/17 Complex (OTC)] Metoprolol Tartrate [Lopressor 25 12.5 mg PO BID #30 tab 10/15/17 mg (*)] Cephalexin [Keflex] 500 mg PO TID 10 Days cap 01/17/18 Sulfamethox/Tmp 800/160 mg 1 tab PO BID@1000,2200 10 Days tab 01/17/18 [Bactrim Ds] MDM/Departure - MDM Procedures: Procedure: Abscess drainage. The patient's abscess was located on the right medial scapular region. I obtained verbal consent from the patient to drain the abscess who was informed about the possibility of bleeding and pain. The abscess was incised with a scalpel and a moderate amount of purulent and sebaceous drainage was expressed. I irrigated the wound and placed some packing. The patient tolerated the procedure well. The procedure was performed by myself. Wound culture obtained and pending. (Lyndsay Red) ED Course/Re-evaluation: Patient appears well overall. No evidence of systemic illness. He does have history of treatment for prostate cancer therefore need have very close follow- up. I do not think that hospitalization indicated at this time. Initiating antibiotic therapy. His tetanus is already up-to-date. Recommend follow up with Dr. Per Dubon in the next 2 days or with his primary care provider. Patient feels comfortable being discharged. All questions and concerns addressed by myself. I saw this patient independently based on established practice protocols. Care of patient under supervision of secondary supervising physician Dr Martinez with whom I discussed case. (Lyndsay Red) I did not see this patient while he was in the emergency department. However his care is discussed with the PA while the patient was in the department. I agree with treatment plan and management (Riley Martinez) - Depart Disposition: Home, Routine, Self-Care Clinical Impression: Infected sebaceous cyst of skin Condition: Good Instructions: Cyst (ED) Additional Instructions: Return to the ER if you develop redness, swelling, discharge, fever, chills, flu -like symptoms, or any other symptoms that concern you. Prescriptions: Cephalexin [Keflex] 500 mg PO TID 10 Days cap Sulfamethox/Tmp 800/160 mg [Bactrim Ds] 1 tab PO BID@1000,2200 10 Days tab Referrals: Kristen Mata MD [Primary Care Provider] - As per Instructions
[2018-01-17 16:27] VITALS: BP 139/71
== END 2018-01-17 16:26 | disposition home or self-care (01) ==
PROC: 0J9D0ZZ Drainage of Right Upper Arm Subcutaneous Tissue and Fascia, Open Approach (ICD-10-PCS; principal; 2018-01-17)
DX: L72.3 Sebaceous cyst (principal); Z85.46 Personal history of malignant neoplasm of prostate

== ENCOUNTER → 2018-04-24 | Outpatient (CLI) | payer MEDICAID | LOC: FIMAGING 18:07 | PROVIDERS: ATTEND Orthopaedic Surgery Orthopaedic Surgery of the Spine | DX: M51.87 Other intervertebral disc disorders, lumbosacral region (principal) ==

== ENCOUNTER → 2018-05-22 | Outpatient (CLI) | payer MEDICAID | LOC: FIMAGING 14:25 | PROVIDERS: ATTEND Nurse Practitioner | DX: R22.42 Localized swelling, mass and lump, left lower limb (principal); M79.605 Pain in left leg ==

== ENCOUNTER 2018-09-10 17:57 | Emergency (ER) | payer MEDICAID | END 2018-09-10 20:22 | disposition home or self-care (01) ==